=== PATIENT | female | born 1955 | race Caucasian/White ===

== ENCOUNTER 2017-09-13 18:52 | Inpatient (IN) | payer OTHER, MEDICARE ==
[~2017-09-13] VITALS: Ht 160 cm; Wt 86.0 kg
[~2017-09-13 18:52] MED LIST: ALBU8I INH; DOXY100T PO; LORT7.5T3; SOMA350T
[2017-09-13 19:04] VITALS: BP 121/77; PULSE 85; RESP 20; TEMP 98.5; O2SAT 99
[2017-09-13] MEDS ORDERED: ASPI1POW8 PO (19:11)
[2017-09-13] MEDS ORDERED: SODIUM CHLOR 0.9% 1000 ML INJ 1,000 ML IV SCH (20:43)
[2017-09-13] MEDS ORDERED: ONDANSETRON HCL 4 MG/2 ML VIAL IVP ONE (20:45)
[2017-09-13] MEDS ORDERED: FAMOTIDINE 20 MG/2 ML VIAL IV PUSH ONE (20:45)
[2017-09-13] MEDS ORDERED: MORPHINE SULFATE 4 MG/ML INJ IV PUSH ONE (20:45)
--- NOTE | 2017-09-13 21:09 | RADRPT ---
EXAM DATE/TIME: 09/13/2017 20:50 [facility] COMPARISON: No previous studies available for comparison. INDICATIONS : Lower chest pain and vomiting. MEDICAL HISTORY : None. SURGICAL HISTORY : None. ENCOUNTER: Initial ACUITY: 3 days PAIN SCORE: 10/10 LOCATION: Bilateral chest FINDINGS: A single view of the chest demonstrates the lungs to be symmetrically aerated without evidence of mas s, infiltrate or effusion. The cardiomediastinal contours are unremarkable. Osseous structures are intact. CONCLUSION: No evidence of acute cardiopulmonary disease. Davis Drummond MD on September 13, 2017 at 21:07 Board Certified Radiologist. This report was verified electronically.
[2017-09-13 21:24] VITALS: PULSE 81; RESP 18; O2SAT 99
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
[2017-09-13 21:29] LABS: BACTERIA, URINE OCC /hpf; BILIRUBIN, URINE NEG (NEG); BLOOD, URINE SMALL (NEG); GLUCOSE,URINE NEG (NEG); KETONE, URINE 10 mg/dL (NEG); MUCUS URINE FEW /lpf (OCC); NITRITE,URINE NEG (NEG); SQUAMOUS EPITHELIAL CELL URINE 1 /hpf (0-5); URINE COLOR YELLOW (YELLW/STRAW); URINE LEUKOCYTE ESTERASE NEG (NEG)
[2017-09-13 21:37] LABS: AUTOMATED NEUTROPHIL # 6.7 TH/MM3 (1.8-7.7); BASOPHIL # 0.1 TH/MM3 (0-0.2); BASOPHIL % 0.5 % (0.0-2.0); EOSINOPHIL # 0.5 TH/MM3 (0-0.4); EOSINOPHIL % 5.3 % (0.0-4.0); HEMATOCRIT 41.5 % (35.0-46.0); HEMOGLOBIN 14.3 GM/DL (11.6-15.3); LYMPH % 21.4 % (9.0-44.0); LYMPHOCYTE # 2.2 TH/MM3 (1.0-4.8); MEAN CELL VOLUME 88.5 FL (80.0-100.0); MEAN CORPUSCULAR HEMOGLOBIN 30.6 PG (27.0-34.0); MEAN CORPUSCULAR HGB CONC 34.6 % (32.0-36.0); MEAN PLATELET VOLUME 8.8 FL (7.0-11.0); MONO % 8.1 % (0.0-8.0); MONOCYTE # 0.8 TH/MM3 (0-0.9); NEUT % 64.7 % (16.0-70.0); PLATELET COUNT 282 TH/MM3 (150-450); RED BLOOD COUNT 4.69 MIL/MM3 (4.00-5.30); RED CELL DISTRIBUTION WIDTH 14.5 % (11.6-17.2); WHITE BLOOD COUNT 10.3 TH/MM3 (4.0-11.0)
[2017-09-13 21:51] LABS: ALT (GPT) 17 U/L (10-53)
[2017-09-13 21:53] LABS: ALKALINE PHOSPHATASE 81 U/L (45-117); TOTAL BILIRUBIN ADULT 0.4 MG/DL (0.2-1.0); TOTAL PROTEIN 7.7 GM/DL (6.4-8.2)
[2017-09-13 22:06] LABS: ALBUMIN 3.5 GM/DL (3.4-5.0); AST (GOT) 20 U/L (15-37); BICARBONATE 24.7 MEQ/L (21.0-32.0); BLOOD UREA NITROGEN 9 MG/DL (7-18); CALCIUM 9.6 MG/DL (8.5-10.1); CHLORIDE 106 MEQ/L (98-107); CREATININE 0.89 MG/DL (0.50-1.00); GLOMERULAR FILTRATION RATE 65 ML/MIN (>89); GLUCOSE,RANDOM 95 MG/DL (74-106); SODIUM (NA) 138 MEQ/L (136-145)
[2017-09-13 22:07] LABS: TROPONIN I LESS THAN 0.02 NG/ML (0.02-0.05)
[2017-09-13] MEDS ORDERED: METOCLOPRAMIDE HCL 10 MG/2 ML VIAL IV PUSH ONE (22:15)
[2017-09-13] MEDS ORDERED: HYDROmorphone HCL PF 2 MG/ML VIAL IV PUSH ONE (22:15)
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
[2017-09-13] MEDS ORDERED: IOHEXOL 350 MG/ML 10 ML VIAL (for RAD DIAG) IVCONTRAST ONE (23:54)
--- NOTE | 2017-09-14 00:33 | RADRPT ---
EXAM DATE/TIME: 09/13/2017 23:39 [facility] COMPARISON: No previous studies available for comparison. INDICATIONS : Abdominal pain; rule out aortic aneurysm. IV CONTRAST: 97 cc Omnipaque 350 (iohexol) IV RADIATION DOSE: 20.48 CTDIvol (mGy) MEDICAL HISTORY : None SURGICAL HISTORY : Hysterectomy. ENCOUNTER: Initial ACUITY: 1 day PAIN SCALE: 7/10 LOCATION: abdomen TECHNIQUE: Volumetric scanning was performed using a multi-row detector CT scanner. The data was post processed with a variety of visualization algorithms including full volume maximum intensity projection, multi -planar sliding thin slab reformation, curved planar reformation, and surface rendering techniques. Using automated exposure control and adjustment of the mA and/or kV according to patient size, radiat ion dose was kept as low as reasonably achievable to obtain optimal diagnostic quality images. DICOM format image data is available electronically for review and comparison. FINDINGS: The lungs are free of acute parenchymal opacity. No effusions are identified. Examination of the medi astinum demonstrates no abnormally enlarged lymph nodes by CT criteria. No axillary or hilar abnormal ities are identified. Coronary artery calcifications are present. There is decreased density of the liver with respect to the spleen compatible with fatty infiltration . The spleen is unremarkable. The spleen is normal in size and free of focal defects. There is gallbl adder wall thickening with stones present and trace amount of pericholecystic fluid. There abnormal l eft paratracheal lymph nodes in aggregate measuring 3 cm in diameter. Examination of the pelvis demon strates no evidence of free fluid or pelvic mass. No abnormally enlarged inguinal or retroperitoneal lymph nodes are present. The bladder is unremarkable. Examination of the aortic arch demonstrates no evidence of aneurysm or dissection. The descending th oracic aorta is unremarkable and the aortic root is normal in size. There is direct origin of the lef t vertebral artery from the arch which can be seen as a normal variation. The aorta is normal in [place]. There is no evidence of aneurysm or dissection. The renal artery origins are patent bilaterally. The celiac axis and superior mesenteric artery origins are also patent. CONCLUSION: 1. No evidence of aneurysm. 2. Cholelithiasis with gallbladder wall thickening suspicious for acute cholecystitis. 3. [place] mesenteric adenopathy of uncertain etiology. Malignancy is not excluded. PET/CT scan is recommended to further evaluation if clinically indicated. 4. Hypodense liver compatible with fatty infiltration or hepatocellular disease. Alton Medina MD on September 14, 2017 at 0:22 Board Certified Radiologist. This report was verified electronically.
[2017-09-14] MEDS ORDERED: SODIUM CHLOR 0.9% 1000 ML INJ 1,000 ML IV SCH (01:27)
[2017-09-14] MEDS ORDERED: MORPHINE SULFATE 2 MG/ML SYRINGE IV PUSH PRN (01:30)
[2017-09-14] MEDS ORDERED: SENNOSIDES 8.6 MG TAB PO PRN (01:30)
[2017-09-14] MEDS ORDERED: ACETAMINOPHEN 325 MG TAB PO PRN (01:30)
[2017-09-14] MEDS ORDERED: SODIUM CHLORIDE 0.9% FLUSH 10 ML FLUSH IV FLUSH PRN (01:30)
[2017-09-14] MEDS ORDERED: LACTULOSE SYRUP 20 GM/30 ML CUP PO PRN (01:30)
[2017-09-14] MEDS ORDERED: MAGNESIUM HYDROXIDE SUSP 30 ML CUP PO PRN (01:30)
[2017-09-14] MEDS ORDERED: BISACODYL 10 MG SUPP RECTAL PRN (01:30)
--- NOTE | 2017-09-14 01:37 | PD ---
Physical Exam Date Seen by Provider: Sep 14, 2017 Narrative This is a patient who was initially seen by Simone Matthew PA-C for severe upper abdominal pain. Please see his note for full details of the H&P. This patient's pain has been difficult to control. However, she is now comfortable. Data Data Last Documented VS Vital Signs Date Time Temp Pulse Resp B/P (MAP) Pulse Ox O2 Delivery O2 Flow Rate FiO2 09/13/17 21:24 81 18 99 Room Air 09/13/17 19:04 98.5 121/77 (92) Orders Orders Complete Blood Count With Diff (09/13/17 19:12) Comprehensive Metabolic Panel (09/13/17 19:12) Urinalysis - C+S If Indicated (09/13/17 19:12) Iv Access Insert/Monitor (09/13/17 19:12) Oxygen Administration (09/13/17 19:12) Oximetry (09/13/17 19:12) Lipase (09/13/17 19:12) Electrocardiogram (09/13/17 ) Lactic Acid Sepsis Protocol (09/13/17 20:43) Ecg Monitoring (09/13/17 20:43) Morphine Inj (Morphine Inj) (09/13/17 20:45) Ondansetron Inj (Zofran Inj) (09/13/17 20:45) Sodium Chlor 0.9% 1000 Ml Inj (Ns 1000 M (09/13/17 20:43) Electrocardiogram (09/13/17 20:43) Famotidine Inj (Pepcid Inj) (09/13/17 20:45) Troponin I (09/13/17 20:43) Ckmb (Isoenzyme) Profile (09/13/17 20:43) Chest, Single Ap (09/13/17 ) Us Abdomen Gallbladder (09/13/17 ) Hydromorphone Pf Inj (Dilaudid Pf Inj) (09/13/17 22:15) Metoclopramide Inj (Reglan Inj) (09/13/17 22:15) Cta Thor Abd Aorta W Iv C W3d (09/13/17 ) Iohexol 350 Inj (Omnipaque 350 Inj) (09/13/17 23:54) Admit Order (Ed Use Only) (09/14/17 ) Vital Signs (Adult) Q4H (09/14/17 01:27) Activity Oob With Assistance (09/14/17:27) Notify Dr: Other (09/14/17:) Piperacil-Tazo 4.5 Gm Premix (Zosyn 4.5 (09/14/17 01:30) Consult General Surgery (09/14/17 ) Admit To Inpatient (09/14/17 ) Vital Signs (Adult) Q4H (09/14/17:27) Activity Oob Ad Michelle (09/14/17:27) Intake + Output ALEN.QSHIFT (09/14/17:27) Diet Clear Liquid (09/14/17 Breakfast) Sodium Chlor 0.9% 1000 Ml Inj (Ns 1000 M (09/14/17:27) Sodium Chloride 0.9% Flush (Ns Flush) (09/14/17 01:30) Sodium Chloride 0.9% Flush (Ns Flush) (09/14/17 09:00) Ondansetron Inj (Zofran Inj) (09/14/17 01:30) Comprehensive Metabolic Panel (09/15/17 06:00) Complete Blood Count With Diff (09/15/17 06:00) Scd Bilateral/Knee High ALEN.BID (09/14/17 01:27) Cliff Bilateral/Knee High ALEN.QSHIFT (09/14/17 01:29) Acetaminophen (Tylenol) (09/14/17 01:30) Morphine Inj (Morphine Inj) (09/14/17 01:30) Docusate Sodium-Senna (Sakina-Colace) (09/14/17 09:00) Magnesium Hydroxide Liq (Milk Of Magnesi (09/14/17 01:30) Sennosides (Senokot) (09/14/17 01:30) Bisacodyl Supp (Dulcolax Supp) (09/14/17 01:30) Lactulose Liq (Lactulose Liq) (09/14/17 01:30) Inpatient Certification (09/14/17 ) Labs Laboratory Tests Test 09/13/17 20:12 09/13/17 21:15 Urine Color YELLOW Urine Turbidity CLEAR Urine pH 6.0 Urine Specific [place] 1.009 Urine Protein NEG mg/dL Urine Glucose (UA) NEG mg/dL Urine Ketones 10 mg/dL Urine Occult Blood SMALL Urine Nitrite NEG Urine Bilirubin NEG Urine Urobilinogen LESS THAN 2.0 MG/DL Urine Leukocyte Esterase NEG Urine RBC 4 /hpf Urine WBC LESS THAN 1 /hpf Urine Squamous Epithelial Cells 1 /hpf Urine Bacteria OCC /hpf Urine Mucus FEW /lpf Microscopic Urinalysis Comment CULT NOT INDICATED White Blood Count 10.3 TH/MM3 Red Blood Count 4.69 MIL/MM3 Hemoglobin 14.3 GM/DL Hematocrit 41.5 % Mean Corpuscular Volume 88.5 FL Mean Corpuscular Hemoglobin 30.6 PG Mean Corpuscular Hemoglobin Concent 34.6 % Red Cell Distribution Width 14.5 % Platelet Count 282 TH/MM3 Mean Platelet Volume 8.8 FL Neutrophils (%) (Auto) 64.7 % Lymphocytes (%) (Auto) 21.4 % Monocytes (%) (Auto) 8.1 % Eosinophils (%) (Auto) 5.3 % Basophils (%) (Auto) 0.5 % Neutrophils # (Auto) 6.7 TH/MM3 Lymphocytes # (Auto) 2.2 TH/MM3 Monocytes # (Auto) 0.8 TH/MM3 Eosinophils # (Auto) 0.5 TH/MM3 Basophils # (Auto) 0.1 TH/MM3 CBC Comment DIFF FINAL Differential Comment Blood Urea Nitrogen 9 MG/DL Creatinine 0.89 MG/DL Random Glucose 95 MG/DL Total Protein 7.7 GM/DL Albumin 3.5 GM/DL Calcium Level 9.6 MG/DL Alkaline Phosphatase 81 U/L Aspartate Amino Transf (AST/SGOT) 20 U/L Alanine Aminotransferase (ALT/SGPT) 17 U/L Total Bilirubin 0.4 MG/DL Sodium Level 138 MEQ/L Potassium Level 4.0 MEQ/L Chloride Level 106 MEQ/L Carbon Dioxide Level 24.7 MEQ/L Anion Gap 7 MEQ/L Estimat Glomerular Filtration Rate 65 ML/MIN Lactic Acid Level 1.2 mmol/L Total Creatine Kinase 67 U/L Troponin I LESS THAN 0.02 NG/ML Lipase 178 U/L MDM Supervised Visit with [facility]: Yes Narrative Course I, Dr. Kamara, have reviewed the advance practice practitioner's documentation and am in agreement, met with the patient face to face, made the diagnosis, and the medical decision making was done by me. *My assessment and Findings: Patient was initially in significant pain. She is now comfortable. CBC & BMP Diagram 09/13/17 21:15 Total Protein 7.7, Albumin 3.5, Calcium Level 9.6, Alkaline Phosphatase 81, Aspartate Amino Transf (AST/SGOT) 20, Alanine Aminotransferase (ALT/SGPT) 17, Total Bilirubin 0.4, Lipase 178 trop < 0.02 Last Impressions Gall Bladder Ultrasound 09/13/17 0000 Signed Impressions: Service Date/Time: Wednesday, September 13, 2017 21:26 - CONCLUSION: 1. Cholelithiasis without evidence of cholecystitis or biliary obstruction. 2. Suspected small right pleural effusion. Davis Drummond MD Chest X-Ray 09/13/17 0000 Signed Impressions: Service Date/Time: Wednesday, September 13, 2017 20:50 - CONCLUSION: No evidence of acute cardiopulmonary disease. Davis Drummond MD CTA: 1. No evidence of aneurysm. 2. Cholelithiasis with gallbladder wall thickening suspicious for acute cholecystitis. 3. [place] mesenteric adenopathy of uncertain etiology. Malignancy is not excluded. PET/CT scan is recommended to further evaluation if clinically indicated. 4. Hypodense liver compatible with fatty infiltration or hepatocellular disease. Disposition has been discussed with the patient and her daughter. She is amenable to admission to the hospital for pain control and probable definitive treatment of her cholelithiasis/? cholecystitis Diagnosis Primary Impression: Abdominal pain Qualified Codes: R10.13 - Epigastric pain Additional Impression: Cholelithiasis Qualified Codes: K80.00 - Calculus of gallbladder with acute cholecystitis without obstruction Admitting Information Admitting Physician Requests: Admit Condition: Stable Kalie Kamara MD Sep 14, 2017 01:37
[2017-09-14] MEDS: PIPERACIL-TAZO 4.5 GM PREMIX 100 ML IV SCH ×4 (02:12→19:16)
[2017-09-14 02:37] VITALS: BP 108/68; PULSE 76; RESP 20; TEMP 97.6; O2SAT 98
[2017-09-14] MEDS: ONDANSETRON HCL 4 MG/2 ML VIAL IVP PRN ×3 (02:47→16:19)
[2017-09-14] MEDS: HYDROmorphone HCL PF 2 MG/ML VIAL IV PUSH PRN ×3 (02:48→16:19)
--- NOTE | 2017-09-14 03:12 | HHI.HP ---
[facility] Kyle Armstrong D.O. Admission Diagnosis abd pain, cholecystitis Diagnoses: (1) Cholecystitis Diagnosis: Principal (2) Intractable pain Diagnosis: Principal (3) Tobacco abuse Diagnosis: Principal Travel History International Travel<30 Days: No Contact w/Intl Traveler <30 Da: No Traveled to Known Affected Are: No History of Present Illness This is a 62-year-old female with no significant PMH who presented to the ER with complaints of abdominal pain in addition to nausea and vomiting x4 days. States symptoms have gotten progressively worse, now w/ few episodes of diarrhea. Reports pain initially intermittent, now constant, severe, 9/10, epigastric/RUQ, non-radiating. No h/o similar symptoms. Denies fever or chills. On arrival, BP 121/77, HR 85, O2 sat 99% RA, Afebrile. CBC unremarkable. Chemistry essentially unremarkable except for GFR 65. LFTs normal. Troponin negative. Lipase normal per UA negative. CXR with no acute findings. Gallbladder US with cholelithiasis, no evidence of cholecystitis or biliary obstruction. CTA Aorta with no aneurysm, cholelithiasis with gallbladder wall thickening suspicious for acute cholecystitis, confluent mesenteric adenopathy of uncertain etiology, malignancy not excluded, hypodense liver compatible with fatty infiltration or hepatocellular disease. S/p Morphine, Zofran and Dilaudid in ER w/ some improvement. Review of Systems Except as stated in HPI: all other systems reviewed are Neg ROS: 14 point review of systems otherwise negative. Past Family Social History Past Medical History PMH: None Past Surgical History PAST SURGICAL HISTORY: Partial Hysterectomy, Left Femur Allergies: Coded Allergies: codeine (Unverified Allergy, Intermediate, Itching, 09/13/17) N/V Family History PAST FAMILY HISTORY: Reviewed. No h/o DM or CAD Social History PAST SOCIAL HISTORY: Occasional alcohol. Smokes 1ppd. Negative for drugs. Physical Exam Vital Signs Vital Signs Date Time Temp Pulse Resp B/P (MAP) Pulse Ox O2 Delivery O2 Flow Rate FiO2 09/14/17 02:37 97.6 76 20 108/68 (81) 98 09/13/17 21:24 81 18 99 Room Air 09/13/17 19:04 98.5 85 20 121/77 (92) 99 Physical Exam PE: GENERAL: Very pleasant middle-aged white female in no acute distress. HEENT: PERRLA, EOMI. No scleral icterus or conjunctival pallor. No lid lag or facial droop. CARDIOVASCULAR: Regular rate and rhythm. No obvious murmurs to auscultation. No chest tenderness to palpation. RESPIRATORY: No obvious rhonchi or wheezing. Clear to auscultation. Breath sounds equal bilaterally. GASTROINTESTINAL: Abdomen soft, tenderness to palpation RUQ/epigastric region, nondistended. BS normal. MUSCULOSKELETAL: Extremities without clubbing, cyanosis, or edema. No obvious deformities. NEUROLOGICAL: Awake, alert and oriented x4. No focal neurologic deficits. Moving both upper and lower extremities spontaneously. Laboratory Laboratory Tests Test 09/13/17 20:12 09/13/17 21:15 Urine Color YELLOW Urine Turbidity CLEAR Urine pH 6.0 Urine Specific Maxie 1.009 Urine Protein NEG Urine Glucose (UA) NEG Urine Ketones 10 Urine Occult Blood SMALL Urine Nitrite NEG Urine Bilirubin NEG Urine Urobilinogen LESS THAN 2.0 Urine Leukocyte Esterase NEG Urine RBC 4 Urine WBC LESS THAN 1 Urine Squamous Epithelial Cells 1 Urine Bacteria OCC Urine Mucus FEW Microscopic Urinalysis Comment CULT NOT INDICATED White Blood Count 10.3 Red Blood Count 4.69 Hemoglobin 14.3 Hematocrit 41.5 Mean Corpuscular Volume 88.5 Mean Corpuscular Hemoglobin 30.6 Mean Corpuscular Hemoglobin Concent 34.6 Red Cell Distribution Width 14.5 Platelet Count 282 Mean Platelet Volume 8.8 Neutrophils (%) (Auto) 64.7 Lymphocytes (%) (Auto) 21.4 Monocytes (%) (Auto) 8.1 Eosinophils (%) (Auto) 5.3 Basophils (%) (Auto) 0.5 Neutrophils # (Auto) 6.7 Lymphocytes # (Auto) 2.2 Monocytes # (Auto) 0.8 Eosinophils # (Auto) 0.5 Basophils # (Auto) 0.1 CBC Comment DIFF FINAL Differential Comment Blood Urea Nitrogen 9 Creatinine 0.89 Random Glucose 95 Total Protein 7.7 Albumin 3.5 Calcium Level 9.6 Alkaline Phosphatase 81 Aspartate Amino Transf (AST/SGOT) 20 Alanine Aminotransferase (ALT/SGPT) 17 Total Bilirubin 0.4 Sodium Level 138 Potassium Level 4.0 Chloride Level 106 Carbon Dioxide Level 24.7 Anion Gap 7 Estimat Glomerular Filtration Rate 65 Lactic Acid Level 1.2 Total Creatine Kinase 67 Troponin I LESS THAN 0.02 Lipase 178 Result Diagram: 09/13/17211409/13/172114 Chasrini VTE Risk Assessment Caprini VTE Risk Assessment: No/Low Risk (score <= 1) Caprini Risk Assessment Model Point Value = 1 Point Value = 2 Point Value = 3 Point Value = 5 Age 41-60 Minor surgery BMI > 25 kg/m2 Swollen legs Varicose veins or History of unexplained or recurrent spontaneous Oral contraceptives or hormone replacement Sepsis (< 1 month) Serious lung disease, including pneumonia (< 1 month) Abnormal pulmonary function Acute myocardial infarction Congestive heart failure (< 1 month) History of inflammatory bowel disease Medical patient at bed rest Age 61-74 Arthroscopic surgery Major open surgery (> 45 min) Laparoscopic surgery (> 45 min) Malignancy Confined to bed (> 72 hours) Immobilizing plaster cast Central venous access Age >= 75 History of VTE Family history of VTE Factor V Leiden Prothrombin [id number] Lupus anticoagulant Anticardiolipin antibodies Elevated serum homocysteine Heparin-induced thrombocytopenia Other congenital or acquired thrombophilia Stroke (< 1 month) Elective arthroplasty Hip, pelvis, or leg fracture Acute spinal cord injury (< 1 month) Prophylaxis Regimen Total Risk Factor Score Risk Level Prophylaxis Regimen 0-1 Low Early ambulation 2 Moderate Order ONE of the following: *Sequential Compression Device (SCD) *Heparin 5000 units SQ BID 3-4 Higher Order ONE of the following medications: *Heparin 5000 units SQ TID *Enoxaparin/Lovenox 40 mg SQ daily (WT < 150 kg, CrCl > 30 mL/min) *Enoxaparin/Lovenox 30 mg SQ daily (WT < 150 kg, CrCl > 10-29 mL/min) *Enoxaparin/Lovenox 30 mg SQ BID (WT < 150 kg, CrCl > 30 mL/min) AND/OR *Sequential Compression Device (SCD) 5 or more Highest Order ONE of the following medications: *Heparin 5000 units SQ TID (Preferred with Epidurals) *Enoxaparin/Lovenox 40 mg SQ daily (WT < 150 kg, CrCl > 30 mL/min) *Enoxaparin/Lovenox 30 mg SQ daily (WT < 150 kg, CrCl > 10-29 mL/min) *Enoxaparin/Lovenox 30 mg SQ BID (WT < 150 kg, CrCl > 30 mL/min) AND *Sequential Compression Device (SCD) Assessment and Plan Problem List: (1) Cholecystitis ICD Code: K81.9 - Cholecystitis, unspecified (2) Intractable pain ICD Code: R52 - Pain, unspecified (3) Tobacco abuse ICD Code: Z72.0 - Tobacco use Assessment and Plan A/P: 1. Cholecystitis: acute onset of abdominal pain, nausea/vomiting w/ progression, Gallbladder US w/ cholelithiasis, CTA Aorta w/ cholelithiasis and gallbladder wall thickening consistent w/ acute cholecystitis and mesenteric adenopathy. Will Consult Gen Sx for further evaluation, clear liquids, IVF, analgesics/antiemetics. 2. Intractable Pain: secondary to above, s/p Morphin in ER w/ minimal improvement, will switch to Dilaudid IV, antiemetics as needed, more comfortable now, not requesting additional medication. 3. Tobacco Abuse: Pt counselled, NicoDerm prn if needed 4. DVT Prophylaxis: SCD/Teds 5. Social work for d/c planning as needed. 6. Case discussed w/ ER physician at length, labs/records/imaging reviewed by me. Physician Certification 2 Midnight Certification Type: Admission for Inpatient Services Order for Inpatient Services The services are ordered in accordance with Medicare regulations or non- Medicare payer requirements, as applicable. In the case of services not specified as inpatient-only, they are appropriately provided as inpatient services in accordance with the 2-midnight benchmark. Estimated LOS (days): 2 days is the estimated time the patient will need to remain in the hospital, assuming treatment plan goals are met and no additional complications. Post-Hospital Plan: Not yet determined Geno Millan MD Sep 14, 2017 03:12
[2017-09-14 08:00] VITALS: BP 124/64; PULSE 83; RESP 17; TEMP 97.4; O2SAT 96
[2017-09-14] MEDS: SODIUM CHLORIDE 0.9% FLUSH 10 ML FLUSH IV FLUSH SCH ×2 (08:30→19:17)
[2017-09-14] MEDS: DOCUSATE SODIUM 50 MG/SENNA 8.6 MG TAB PO SCH ×2 (08:31→19:17)
[2017-09-14] MEDS: LACTATED RINGER'S 1000 ML INJ 1,000 ML IV SCH ×2 (08:33→12:15)
[2017-09-14] MEDS ORDERED: INSULIN HUMAN REGULAR 1,000 UNITS/10 ML VIAL SQ PRN (09:30)
[2017-09-14] MEDS ORDERED: LACTATED RINGER'S 1000 ML IV PRN (09:30)
[2017-09-14] MEDS ORDERED: POVIDONE IODINE 5% (ANTISEPSIS KIT) 4 APPLICATIONS EACH NARE PRN (09:30)
[2017-09-14] MEDS ORDERED: METOPROLOL TARTRATE 25 MG TAB PO PRN (09:30)
[2017-09-14] MEDS ORDERED: SODIUM CHLORID 0.9% 500 ML IV PRN (09:30)
[2017-09-14] MEDS ORDERED: CHLORHEXIDINE GLUCONATE 2 % 1 PACK (2 CLOTHS) TOPICAL PRN (09:30)
[2017-09-14] MEDS ORDERED: ACETAMINOPHEN 1000 MG/100 ML 0 ML IV ONE (09:57)
[2017-09-14] MEDS ORDERED: BUPIVACAINE/EPINEPHRINE 0.25% 50 ML VIAL ONE (09:57)
--- NOTE | 2017-09-14 10:32 | HHI.PR ---
Immediate Post Op Note Procedure Date: Sep 14, 2017 Pre Op Diagnosis: acute cholecystitis, symptomatic cholelithiasis Post Op Diagnosis: same Surgeon: Justin Walter MD Wire Saw Operator(s): see or sheet Procedure: lap rolan Findings: inflamed distended gallbladder with stones Complications: none Specimen(s) removed: gallbladder Estimated blood loss: 5cc Anesthesia: General Drains: None Patient to: PACU Patient Condition: Good Justin Walter MD Sep 14, 2017 10:32
[2017-09-14] MEDS ORDERED: DO NOT ADM ANY ANTICOAGULANT DRUGS PRN (11:42)
[2017-09-14] MEDS ORDERED: MIDAZOLAM HCL 2 MG/2 ML VIAL ONE (11:52)
[2017-09-14] MEDS ORDERED: ONDANSETRON HCL 4 MG/2 ML VIAL IV ONE (12:00)
[2017-09-14] MEDS ORDERED: DEXAMETHASONE SOD PHOS 4 MG/ML VIAL IV ONE (12:00)
[2017-09-14] MEDS ORDERED: ROCURONIUM INJ 50 MG/5 ML SYRINGE IV PUSH ONE (12:00)
[2017-09-14] MEDS ORDERED: PROPOFOL 200 MG/20 ML AMP IV ONE (12:00)
[2017-09-14] MEDS ORDERED: GLYCOPYRROLATE 1 MG/5 ML SYRINGE IV PUSH ONE (12:00)
[2017-09-14] MEDS ORDERED: NEOSTIGMINE 5 MG/5 ML SYRINGE IV PUSH ONE (12:00)
[2017-09-14] MEDS ORDERED: LIDOCAINE HCL 1% PF 5 ML SYRINGE OTHER ONE (12:00)
[2017-09-14] MEDS ORDERED: ESMOLOL HCL 100 MG/10 ML VIAL IV ONE (12:00)
[2017-09-14] MEDS ORDERED: *morphine SULFATE 8 MG/ML PERIprocedure ONLY ONE ×2 (12:17→12:25)
[2017-09-14] MEDS ORDERED: HYDROmorphone HCL PF 0.5 MG/0.5 ML SYRINGE ONE (12:33)
--- NOTE | 2017-09-14 12:37 | MP ---
cc: Justin Walter MD DATE OF OPERATION: 09/14/2017 PREOPERATIVE DIAGNOSIS: Acute cholecystitis with cholelithiasis. POSTOPERATIVE DIAGNOSIS: Acute cholecystitis with cholelithiasis. PROCEDURE PERFORMED: Laparoscopic cholecystectomy. SURGEON: Justin Walter MD MERCHANDISE COLLECTOR: ARTURO ANESTHESIA: GETA. INTRAVENOUS FLUIDS: See anesthesia sheet. ESTIMATED BLOOD LOSS: 15 mL DRAINS: None. COMPLICATIONS: None. WOUND CLASSIFICATION: Clean/contaminated. SPECIMENS: Gallbladder. FINDINGS: Inflamed, distended gallbladder with multiple gallstones. INDICATION: The patient a 62-year-old female who presented with acute onset of right upper quadrant epigastric abdominal pain. She had further workup including ultrasound showing multiple gallstones. Decision was made for laparoscopic cholecystectomy. DESCRIPTION OF PROCEDURE: The patient was taken to the operating suite, placed in supine position. She was prepped and draped in usual sterile fashion after induction of general endotracheal anesthesia. Brief timeout done stating correct patient, procedure, surgical site. We were all in agreement with this. Attention first directed to the umbilicus where local anesthetic injected. Small stab kalyn incision was made. A 5 mm port was done with Visiport and entered into the abdomen safely. On cursory inspection, no evidence of injury. Three other ports placed, including a 12 mm epigastric port, followed by two 5 mm right subcostal ports. The patient placed in reverse Trendelenburg, airplaned left. On observation, there was noted to be some adhesions around the gallbladder and gallbladder noted to be acutely inflamed and thickened wall. The adhesions were taken down. The gallbladder fundus was grasped and retracted cephalad. The hook Bovie electrocautery was used to dissect out the gallbladder along with a [place] grasper. The gallbladder, cystic duct and cystic artery were dissected out in the usual manner, 2 clips placed proximal on the cystic artery and 1 distal. Small side branch, single clip placed. EndoShears used to transect this. Cystic duct, 3 clips were placed proximal and 1 clip was placed distal. The EndoShears used to transect the cystic duct. Gallbladder was removed from the gallbladder fossa with hook Bovie electrocautery and placed in the EndoCatch bag. Prior to removal, actually, the gallbladder was decompressed with an EndoNeedle due to the thickened induration and difficulty in grasping the gallbladder. Suction irrigation done until effluent was clear. Hook Bovie electrocautery used in the gallbladder fossa. Small little bleeding controlled with hook Bovie electrocautery and small piece of Surgicel was placed in the gallbladder fossa bed. Following this, hemostasis was noted and no biliary leakage. The patient flattened out, pneumoperitoneum removed, the ports were removed. The epigastric port was closed with 0 Vicryl, 4-0 Monocryl use all port sites. Local anesthetic injected. Sterile dressings including Steri-Strips and Mastisol placed. The patient tolerated procedure well. No intraoperative complications. All lap and instrument counts were correct at the end of the procedure. MD SHARYN Menchaca/MARY , 12:15 PM , 12:36 PM
--- NOTE | 2017-09-14 13:48 | HHI.PR ---
Addendum To [facility] Progress Not Reason for addendum: Additonal documentation (Discussed with surgery, status post laparoscopic cholecystectomy secondary to cholecystitis and gallstones. Recommending continue IV Zosyn.Abnormal imaging regarding liver outpatient follow-up) Mich Moffett MD Sep 14, 2017 13:48
--- NOTE | 2017-09-14 14:25 | EKG ---
Date Performed: 09/13/2017 Time Performed: 19:30:58 PTAGE: 62 years EKG: Sinus rhythm NORMAL ECG Since PREVIOUS TRACING , no significant change noted PREVIOUS TRACIN09/11/2013 06.42.04 DOCTOR: Azul Riggins Interpretating Date/Time 09/16/2017 12:59:15
[2017-09-14 16:00] VITALS: BP 115/59; PULSE 62; RESP 17; TEMP 97.6; O2SAT 95
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
[2017-09-14] MEDS ORDERED: diphenhydrAMINE HCL 25 MG CAP PO SCH (18:45)
[2017-09-14] MEDS ORDERED: diphenhydrAMINE HCL 25 MG CAP PO PRN (19:00)
[2017-09-14] MEDS ORDERED: MORPHINE SULFATE 4 MG/ML INJ IV PRN (19:00)
[2017-09-14] MEDS: ACETAMINOPHEN/HYDROcodone 325 MG/5 MG TAB PO PRN ×2 (19:17→23:09)
[2017-09-14 20:00] VITALS: BP 102/63; PULSE 64; RESP 18; TEMP 98; O2SAT 98
[2017-09-15] VITALS: BP 135/69; PULSE 59; RESP 17; TEMP 98.4; O2SAT 96
[2017-09-15] MEDS: PIPERACIL-TAZO 4.5 GM PREMIX 100 ML IV SCH ×2 (01:52→09:04)
[2017-09-15 06:11] LABS: BASOPHIL % 0.1 % (0.0-2.0); HEMOGLOBIN 10.9 GM/DL (11.6-15.3); LYMPH % 8.9 % (9.0-44.0); LYMPHOCYTE # 0.8 TH/MM3 (1.0-4.8); MEAN CELL VOLUME 90.5 FL (80.0-100.0); MEAN CORPUSCULAR HEMOGLOBIN 30.9 PG (27.0-34.0); MEAN CORPUSCULAR HGB CONC 34.1 % (32.0-36.0); MEAN PLATELET VOLUME 9.2 FL (7.0-11.0); MONO % 5.9 % (0.0-8.0); MONOCYTE # 0.6 TH/MM3 (0-0.9); NEUT % 85.1 % (16.0-70.0); PLATELET COUNT 205 TH/MM3 (150-450); RED BLOOD COUNT 3.54 MIL/MM3 (4.00-5.30); RED CELL DISTRIBUTION WIDTH 14.9 % (11.6-17.2); WHITE BLOOD COUNT 9.4 TH/MM3 (4.0-11.0)
[2017-09-15 06:54] LABS: ALBUMIN 2.6 GM/DL (3.4-5.0); ALKALINE PHOSPHATASE 121 U/L (45-117); ALT (GPT) 321 U/L (10-53); AST (GOT) 252 U/L (15-37); BICARBONATE 23.8 MEQ/L (21.0-32.0); BLOOD UREA NITROGEN 7 MG/DL (7-18); CALCIUM 8.7 MG/DL (8.5-10.1); CHLORIDE 106 MEQ/L (98-107); CREATININE 0.92 MG/DL (0.50-1.00); GLOMERULAR FILTRATION RATE 62 ML/MIN (>89); GLUCOSE,RANDOM 116 MG/DL (74-106); SODIUM (NA) 140 MEQ/L (136-145); TOTAL BILIRUBIN ADULT 0.6 MG/DL (0.2-1.0)
[2017-09-15] MEDS ORDERED: OXYC-392 PO (07:38)
--- NOTE | 2017-09-15 07:38 | HHI.DCPOC ---
Discharge Care Plan Diagnosis: (1) Cholelithiasis (2) Cholecystitis Your Health Problems Are: Difficulty with ADL Exercise Tolerance Goals to Promote Your Health * To prevent worsening of your condition and complications * To maintain your health at the optimal level Directions to Meet Your Goals Take your medications as prescribed Follow your dietary instruction Follow activity as directed Keep your appointments as scheduled Take your immunizations and boosters as scheduled If your symptoms worsen call your PCP, if no PCP go to Urgent Care Center or Emergency Room Smoking is Dangerous to Your Health. Avoid second hand smoke Call the 24-hour hour crisis hotline for domestic abuse at Mich Moffett MD Sep 15, 2017 07:38
[2017-09-15] MEDS: SODIUM CHLORIDE 0.9% FLUSH 10 ML FLUSH IV FLUSH SCH (07:44)
[2017-09-15] MEDS: LACTATED RINGER'S 1000 ML INJ 1,000 ML IV SCH (07:50)
[2017-09-15] MEDS: DOCUSATE SODIUM 50 MG/SENNA 8.6 MG TAB PO SCH (09:04)
--- NOTE | 2017-09-15 10:31 | HHI.PR ---
Subjective Subjective Notes Resting in bed No issues Pain controlled Objective Vitals/I&O Vital Signs Date Time Temp Pulse Resp B/P (MAP) Pulse Ox O2 Delivery O2 Flow Rate FiO2 09/15/17 00:00 98.4 59 17 135/69 (91) 96 09/14/17 12:45 Nasal Cannula 3 Labs Laboratory Tests Test 09/15/17 05:25 White Blood Count 9.4 Red Blood Count 3.54 Hemoglobin 10.9 Hematocrit 32.0 Mean Corpuscular Volume 90.5 Mean Corpuscular Hemoglobin 30.9 Mean Corpuscular Hemoglobin Concent 34.1 Red Cell Distribution Width 14.9 Platelet Count 205 Mean Platelet Volume 9.2 Neutrophils (%) (Auto) 85.1 Lymphocytes (%) (Auto) 8.9 Monocytes (%) (Auto) 5.9 Eosinophils (%) (Auto) 0.0 Basophils (%) (Auto) 0.1 Neutrophils # (Auto) 8.0 Lymphocytes # (Auto) 0.8 Monocytes # (Auto) 0.6 Eosinophils # (Auto) 0.0 Basophils # (Auto) 0.0 CBC Comment DIFF FINAL Differential Comment Blood Urea Nitrogen 7 Creatinine 0.92 Random Glucose 116 Total Protein 6.0 Albumin 2.6 Calcium Level 8.7 Alkaline Phosphatase 121 Aspartate Amino Transf (AST/SGOT) 252 Alanine Aminotransferase (ALT/SGPT) 321 Total Bilirubin 0.6 Sodium Level 140 Potassium Level 4.3 Chloride Level 106 Carbon Dioxide Level 23.8 Anion Gap 10 Estimat Glomerular Filtration Rate 62 Cardiovascular: Regular Lungs: Clear Abdomen: Other (lap sites c/d/i ), Post-op tenderness Extremities: No edema A/P Assessment and Plan 62 year old female POD1 lap rolan -Tolerated regular diet -Pain controlled -Okay to shower tomorrow; pat incisions dry -No bathtubs, swimming pools or beach -Follow up next Friday; daughter will call office to make appointment -GS clear for Florence CarterP/Piped Buttonhole Machine Operator TRANSCRIPTION Sep 15, 2017 10:31
--- NOTE | 2017-09-15 10:53 | HHI.PR ---
Subjective Remarks Follow-up laparoscopic cholecystectomy. She is doing okay discussed with general surgery patient can be discharged home. Seen with daughter discussed with nursing Objective Vitals Vital Signs Date Time Temp Pulse Resp B/P (MAP) Pulse Ox O2 Delivery O2 Flow Rate FiO2 09/15/17 00:00 98.4 59 17 135/69 (91) 96 09/14/17 20:00 98.0 64 18 102/63 (76) 98 09/14/17 16:00 97.6 62 17 115/59 (77) 95 09/14/17 12:45 98.8 74 18 120/58 (78) 95 Nasal Cannula 3 09/14/17 12:30 62 16 122/55 (77) 97 09/14/17 12:15 65 16 123/58 (79) 98 09/14/17 12:00 79 11 131/63 (85) 97 09/14/17 11:45 99 20 137/68 (91) 97 Nasal Cannula 2 09/14/17 11:44 98.8 98 13 132/60 (84) 99 Nasal Cannula 2 I/O 09/14/17 09/14/17 09/14/17 09/15/17 09/15/17 09/15/17 07:00 15:00 23:00 07:00 15:00 23:00 Intake Total 1480 ml 1800 ml 560 ml 500 ml Output Total 15 ml Balance 1480 ml 1785 ml 560 ml 500 ml Intake Oral 380 ml 360 ml 400 ml IV Total 1100 ml 1000 ml 200 ml 100 ml Other 800 ml Output Estimated Blood Loss 15 ml # Voids 2 3 3 # Bowel Movements 0 Result Diagram: 09/15/17 0525 09/15/17 0525 Imaging Last Impressions Gall Bladder Ultrasound 09/13/17 0000 Signed Impressions: Service Date/Time: Wednesday, September 13, 2017 21:26 - CONCLUSION: 1. Cholelithiasis without evidence of cholecystitis or biliary obstruction. 2. Suspected small right pleural effusion. Davis Drummond MD Chest X-Ray 09/13/17 0000 Signed Impressions: Service Date/Time: Wednesday, September 13, 2017 20:50 - CONCLUSION: No evidence of acute cardiopulmonary disease. Davis Drummond MD Aorta CTA 09/13/17 0000 Signed Impressions: Service Date/Time: Wednesday, September 13, 2017 23:39 - CONCLUSION: 1. No evidence of aneurysm. 2. Cholelithiasis with gallbladder wall thickening suspicious for acute cholecystitis. 3. Francisco mesenteric adenopathy of uncertain etiology. Malignancy is not excluded. PET/CT scan is recommended to further evaluation if clinically indicated. 4. Hypodense liver compatible with fatty infiltration or hepatocellular disease. Alton Medina MD Objective Remarks GENERAL: Very pleasant middle-aged white female in no acute distress. HEENT: PERRLA, EOMI. No scleral icterus or conjunctival pallor. No lid lag or facial droop. CARDIOVASCULAR: Regular rate and rhythm. No obvious murmurs to auscultation. No chest tenderness to palpation. RESPIRATORY: No obvious rhonchi or wheezing. Clear to auscultation. Breath sounds equal bilaterally. GASTROINTESTINAL: Abdomen soft, tenderness to palpation RUQ/epigastric region over the operative site, nondistended. BS normal. MUSCULOSKELETAL: Extremities without clubbing, cyanosis, or edema. No obvious deformities. NEUROLOGICAL: Awake, alert and oriented x4. No focal neurologic deficits. Moving both upper and lower extremities spontaneously. Procedures Laparoscopic cholecystectomy A/P Problem List: (1) Cholecystitis ICD Code: K81.9 - Cholecystitis, unspecified (2) Intractable pain ICD Code: R52 - Pain, unspecified (3) Tobacco abuse ICD Code: Z72.0 - Tobacco use Assessment and Plan 1. Cholecystitis and cholelithiasis status post laparoscopic surgery. She is doing well continue pain management with oxycodone status post Zosyn cleared for discharge by general surgery tolerating diet. Patient counseled regarding narcotic use 2. Transaminitis. Discussed with surgery likely related to procedure. Patient with normal bilirubin. Rpt LFTS in 2 weeks. LFTS wNL prior to sx. CT shows hypodense liver differential diagnosis of hepatocellular disease or fatty infiltration. Outpatient follow-up. Also has mesenteric adenopathy radiology recommends outpatient PET scan. Again discussed with surgery likely related to cholecystitis. Will need outpatient follow-up. Avoid Tylenol 3. Mild hyperglycemia. Obtain fasting glucose this can be done outpatient 4. Tobacco Abuse: Pt counselled, NicoDerm prn if needed DVT Prophylaxis: SCD/Teds Discharge Planning Discharge patient to home Condition on discharge: Improved Regular Diet as tolerated Ad Michelle activity no driving Rx written: Oxycodone Follow-up with primary care physician, surgery and PET scan in 3-4 weeks. LFTs in 2 weeks Mich Moffett MD Sep 15, 2017 10:53
== END 2017-09-15 11:09 | disposition home or self-care (01) | DRG 419 ==
LOC: NEPE 18:52 → EDBD 18:52 → NEDA 09-14 01:30 → N07A 09-14 02:30
PROVIDERS: ADMIT Internal Medicine; ATTEND Internal Medicine
PROC: 0FT44ZZ Resection of Gallbladder, Percutaneous Endoscopic Approach (ICD-10-PCS; principal; 2017-09-14 10:16)
DX: K80.12 Calculus of gallbladder with acute and chronic cholecystitis without obstruction (principal); F17.210 Nicotine dependence, cigarettes, uncomplicated; R73.9 Hyperglycemia, unspecified
CPT/HCPCS: 71045; 71275; 74174; 76705; 80053; 81001; 82550; 83605; 83690; 84484; 85025; 88304; 93005; 96361; 96374; 96375; J0131; J1100; J1170; J2250; J2270; J2405; J2543; J2710; J2765; J3010; J7030; J7120; Q9967

== ENCOUNTER 2017-09-19 16:43 | Observation (INO) | payer MEDICARE, OTHER ==
[~2017-09-19 16:43] MED LIST changes: -ALBU8I INH; +ASPI1POW8 PO; -DOXY100T PO; -LORT7.5T3; +OXYC-392 PO; -SOMA350T
[2017-09-19 17:02] VITALS: BP 189/74; PULSE 63; RESP 16; TEMP 98.2; O2SAT 100
[2017-09-19] MEDS ORDERED: SODIUM CHLOR 0.9% 1000 ML INJ 1,000 ML IV SCH (18:10)
[2017-09-19] MEDS ORDERED: ONDANSETRON HCL 4 MG/2 ML VIAL IVP ONE (18:15)
[2017-09-19] MEDS ORDERED: MORPHINE SULFATE 4 MG/ML INJ IV PUSH ONE (18:15)
[2017-09-19] MEDS ORDERED: HYDROmorphone HCL PF 2 MG/ML VIAL IV PUSH ONE (18:30)
[2017-09-19 18:37] LABS: AUTOMATED NEUTROPHIL # 3.5 TH/MM3 (1.8-7.7); BASOPHIL # 0.1 TH/MM3 (0-0.2); EOSINOPHIL # 0.3 TH/MM3 (0-0.4); EOSINOPHIL % 5.6 % (0.0-4.0); HEMATOCRIT 34.7 % (35.0-46.0); HEMOGLOBIN 11.7 GM/DL (11.6-15.3); LYMPH % 31.1 % (9.0-44.0); LYMPHOCYTE # 1.9 TH/MM3 (1.0-4.8); MEAN CELL VOLUME 89.8 FL (80.0-100.0); MEAN CORPUSCULAR HEMOGLOBIN 30.3 PG (27.0-34.0); MEAN CORPUSCULAR HGB CONC 33.7 % (32.0-36.0); MEAN PLATELET VOLUME 9.6 FL (7.0-11.0); MONO % 6.5 % (0.0-8.0); MONOCYTE # 0.4 TH/MM3 (0-0.9); NEUT % 55.8 % (16.0-70.0); PLATELET COUNT 269 TH/MM3 (150-450); RED BLOOD COUNT 3.86 MIL/MM3 (4.00-5.30); RED CELL DISTRIBUTION WIDTH 14.7 % (11.6-17.2); WHITE BLOOD COUNT 6.2 TH/MM3 (4.0-11.0)
[2017-09-19 18:48] VITALS: RESP 18; O2SAT 97
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
[2017-09-19 18:54] LABS: BACTERIA, URINE MANY /hpf; BILIRUBIN, URINE NEG (NEG); BLOOD, URINE NEG (NEG); GLUCOSE,URINE NEG (NEG); KETONE, URINE NEG (NEG); NITRITE,URINE NEG (NEG); PH, URINE 6.5 (5.0-8.5); SQUAMOUS EPITHELIAL CELL URINE 4 /hpf (0-5); URINE COLOR LIGHT-YELLOW (YELLW/STRAW); URINE LEUKOCYTE ESTERASE NEG (NEG)
[2017-09-19 19:00] LABS: ALBUMIN 2.9 GM/DL (3.4-5.0); ALT (GPT) 188 U/L (10-53); AST (GOT) 132 U/L (15-37); BICARBONATE 28.9 MEQ/L (21.0-32.0); BLOOD UREA NITROGEN 5 MG/DL (7-18); CALCIUM 9.1 MG/DL (8.5-10.1); CHLORIDE 108 MEQ/L (98-107); CREATININE 0.91 MG/DL (0.50-1.00); GLOMERULAR FILTRATION RATE 63 ML/MIN (>89); GLUCOSE,RANDOM 85 MG/DL (74-106); SODIUM (NA) 140 MEQ/L (136-145)
[2017-09-19 19:02] LABS: ALKALINE PHOSPHATASE 214 U/L (45-117); TOTAL BILIRUBIN ADULT 0.4 MG/DL (0.2-1.0); TOTAL PROTEIN 6.8 GM/DL (6.4-8.2)
[2017-09-19] MEDS ORDERED: IOHEXOL 350 MG/ML 10 ML VIAL (for RAD DIAG) IVCONTRAST ONE (19:21)
[2017-09-19] MEDS ORDERED: HYDROmorphone HCL PF 0.5 MG/0.5 ML SYRINGE IV PUSH ONE (20:15)
[2017-09-19] MEDS ORDERED: ONDANSETRON HCL 4 MG/2 ML VIAL IV PUSH ONE (20:15)
--- NOTE | 2017-09-19 20:19 | RADRPT ---
EXAM DATE/TIME: 09/19/2017 19:17 [facility] COMPARISON: No previous studies available for comparison. INDICATIONS : Left chest pain and tachycardia; rule out pulmonary embolus. IV CONTRAST: 98 cc Omnipaque 350 (iohexol) IV ; Cumulative dose for multiple exams. RADIATION DOSE: 18.18 CTDIvol (mGy) MEDICAL HISTORY : None SURGICAL HISTORY : Hysterectomy. Cholecystectomy. ENCOUNTER: Initial ACUITY: 1 day PAIN SCALE: 3/10 LOCATION: chest TECHNIQUE: Volumetric scanning of the chest was performed using a pulmonary embolism protocol MIP images were re constructed. Using automated exposure control and adjustment of the mA and/or kV according to patien t size, radiation dose was kept as low as reasonably achievable to obtain optimal diagnostic quality images. DICOM format image data is available electronically for review and comparison. Follow-up recommendations for detected pulmonary nodules are based at a minimum on nodule size and pa tient risk factors according to Fleischner Society Guidelines. FINDINGS: PULMONARY ARTERIES: No filling defects are seen in the pulmonary arteries through the segmental level. LUNGS: There is no consolidation or pneumothorax . No concerning pulmonary nodule is visualized. PLEURAE: There is no pleural thickening or pleural effusion. MEDIASTINUM: There is good visualization of the great vessels of the middle mediastinum. No evidence of mediastin al or hilar adenopathy/mass. MUSCULOSKELETAL: Within normal limits for patient age. MISCELLANEOUS: The visualized upper abdominal organs demonstrate no acute abnormality. CONCLUSION: No acute disease. No pulmonary embolus is seen. Davis Ortiz MD on September 19, 2017 at 20:16 Board Certified Radiologist. This report was verified electronically.
--- NOTE | 2017-09-19 20:42 | RADRPT ---
EXAM DATE/TIME: 09/19/2017 19:46 [facility] COMPARISON: No previous studies available for comparison. INDICATIONS : Bilateral leg swelling. MEDICAL HISTORY : Headaches. Blood transfusion. SURGICAL HISTORY : Cholecystectomy.Hysterectomy. Left lens replacement. Left hip ORIF. ENCOUNTER: Initial ACUITY: 1 day PAIN SCORE: 2/10 LOCATION: Bilateral legs. TECHNIQUE: Venous ultrasound of the left and right leg was performed from the inguinal ligament to the proximal calf. Real-time, color Doppler and spectral tracing, compression and augmentation techniques were us ed. FINDINGS: RIGHT LEG: There is normal compressibility of the deep venous system from the inguinal region to the proximal ca lf. No echogenic clot is seen in the lumen of the common femoral, femoral, popliteal, and posterior tibial veins. There is a normal response of the venous system to proximal and distal augmentation an d respiration. LEFT LEG: There is normal compressibility of the deep venous system from the inguinal region to the proximal ca lf. No echogenic clot is seen in the lumen of the common femoral, femoral, popliteal, and posterior tibial veins. There is a normal response of the venous system to proximal and distal augmentation an d respiration. CONCLUSION: No DVT. Davis Ortiz MD on September 19, 2017 at 20:40 Board Certified Radiologist. This report was verified electronically.
[2017-09-19 20:59] VITALS: BP 137/63; PULSE 60; RESP 20; O2SAT 99
--- NOTE | 2017-09-19 21:44 | RADRPT ---
EXAM DATE/TIME: 09/19/2017 19:17 [facility] COMPARISON: CTA THORACIC ABDOMINAL AORTA W 3D RECON, September 13, 2017, 23:39. INDICATIONS : Right upper quadrant pain. IV CONTRAST: 98 cc Omnipaque 350 (iohexol) IV ; Cumulative dose for multiple exams. ORAL CONTRAST: No oral contrast ingested. RADIATION DOSE: 24.01 CTDIvol (mGy) MEDICAL HISTORY : None SURGICAL HISTORY : Hysterectomy. Cholecystectomy. ENCOUNTER: Initial ACUITY: 1 day PAIN SCALE: 6/10 LOCATION: abdomen TECHNIQUE: Volumetric scanning of the abdomen and pelvis was performed. Using automated exposure control and ad justment of the mA and/or kV according to patient size, radiation dose was kept as low as reasonably achievable to obtain optimal diagnostic quality images. DICOM format image data is available electro nically for review and comparison. FINDINGS: LOWER LUNGS: The visualized lower lungs are clear. LIVER: Clips are seen in the right upper quadrant. The patient appears to status post cholecystectomy. There is fluid seen in the gallbladder fossa. There is dilatation of the intra-and extra hepatic biliary d ucts. The common bile duct measures 1 cm. There is a small focus of air in the gallbladder fossa. The re is intra-abdominal air seen the peritoneal cavity. There is postoperative change and air seen in t he anterior abdominal wall. SPLEEN: Normal size without lesion. PANCREAS: Within normal limits. KIDNEYS: Normal in size and shape. There is no mass, stone or hydronephrosis. ADRENAL GLANDS: Within normal limits. VASCULAR: There is no aortic aneurysm. Scattered atherosclerotic calcifications are present. BOWEL/MESENTERY: There is free intraperitoneal air seen. There is a mild hiatal hernia. Scattered colonic diverticula are present. ABDOMINAL WALL: Within normal limits. RETROPERITONEUM: Air is seen in the retroperitoneum in the right lateral and posterior abdomen posterior to the right kidney. There is a lobulated cystic mass seen in the left retroperitoneum measuring 4.2 x 3.6 x 2.2 c m. This is nonspecific. There is no lymphadenopathy. BLADDER: No wall thickening or mass. REPRODUCTIVE: The patient is status post hysterectomy. INGUINAL: There is no lymphadenopathy or hernia. MUSCULOSKELETAL: Surgical hardware seen in the left proximal femur from prior ORIF. CONCLUSION: 1. Fluid in the gallbladder fossa. This could be postoperative fluid. This does not appear to have a capsule. A biloma could have a similar appearance. There is intra-and extrahepatic biliary duct dilat ation. 2. Free intraperitoneal air, retroperitoneal, and air within the anterior abdominal wall. Presumably, this is post surgical. This should be correlated with the date of the cholecystectomy. 3. 4 cm lobulated cystic area in the left retroperitoneum likely related to benign cystic change such as a lymphocele. Davis Ortiz MD on September 19, 2017 at 21:33 Board Certified Radiologist. This report was verified electronically.
--- NOTE | 2017-09-19 22:40 | HHI.HP ---
[facility] Kyle Armstrong D.O. Admission Diagnosis intractable abdominal pain, bile duct stone Diagnoses: (1) Intractable pain Diagnosis: Principal (2) Elevated LFTs Diagnosis: Principal (3) HTN (hypertension) Diagnosis: Principal Travel History International Travel<30 Days: No Contact w/Intl Traveler <30 Da: No Traveled to Known Affected Are: No History of Present Illness This is a 62-year-old female with no significant PMH who presented to the ER with complaints of abdominal pain. I admitted pt recently for similar complaints no 09/14/17, found to have cholelithiasis w/ cholecystitis, s/p Lap Shavon by Dr. Walter on 09/14/17. States she was doing well after discharge until about 2 days ago when developed RUQ pain, denies nausea, vomiting or fever. Has been taking Oxycodone at home w/ minimal relief. Also notes intermittent SOB. On arrival, BP 189/74, HR 63, O2 sat 100% RA, Afebrile. CBC unremarkable. Chemistry unremarkable. LFTs elevated, mildly improved in comparison to previous labs. Total Bili 0.4. INR 1.0. UA with bacteriuria. CT Abdomen/Pelvis fluid in gallbladder fossa, could be postoperative fluid, possible biloma, intra-and extrahepatic biliary ductal dilatation, 4 cm lobulated cystic area left retroperitoneum likely benign lymphocele. CTA Pulm negative for PE. LE Doppler negative. Dr. Glass consulted by ER physician, recommended admission for MRCP, GI consulted. Review of Systems Except as stated in HPI: all other systems reviewed are Neg ROS: 14 point review of systems otherwise negative. Past Family Social History Past Medical History PMH: None Past Surgical History PAST SURGICAL HISTORY: Cholecystectomy, Left Eye Surgery, Hysterectomy, Left Femur Surgery Allergies: Coded Allergies: codeine (Unverified Allergy, Intermediate, Itching, 09/19/17) N/V Family History PAST FAMILY HISTORY: Reviewed. No h/o DM or CAD Social History PAST SOCIAL HISTORY: Negative for alcohol or drugs. Smokes 1ppd. Physical Exam Vital Signs Vital Signs Date Time Temp Pulse Resp B/P (MAP) Pulse Ox O2 Delivery O2 Flow Rate FiO2 09/19/17 20:59 60 20 137/63 (87) 99 Room Air 09/19/17 18:48 18 97 Room Air 09/19/17 17:02 98.2 63 16 189/74 (112) 100 Physical Exam PE: GENERAL: Very pleasant middle-aged white female in no acute distress. HEENT: PERRLA, EOMI. No scleral icterus or conjunctival pallor. No lid lag or facial droop. CARDIOVASCULAR: Regular rate and rhythm. No obvious murmurs to auscultation. No chest tenderness to palpation. RESPIRATORY: No obvious rhonchi or wheezing. Clear to auscultation. Breath sounds equal bilaterally. GASTROINTESTINAL: Abdomen soft, RUQ tenderness to palpation, nondistended. BS normal. +bruising MUSCULOSKELETAL: Extremities without clubbing, cyanosis, or edema. No obvious deformities. NEUROLOGICAL: Awake, alert and oriented x4. No focal neurologic deficits. Moving both upper and lower extremities spontaneously. Laboratory Laboratory Tests Test 09/19/17 18:15 09/19/17 18:34 White Blood Count 6.2 Red Blood Count 3.86 Hemoglobin 11.7 Hematocrit 34.7 Mean Corpuscular Volume 89.8 Mean Corpuscular Hemoglobin 30.3 Mean Corpuscular Hemoglobin Concent 33.7 Red Cell Distribution Width 14.7 Platelet Count 269 Mean Platelet Volume 9.6 Neutrophils (%) (Auto) 55.8 Lymphocytes (%) (Auto) 31.1 Monocytes (%) (Auto) 6.5 Eosinophils (%) (Auto) 5.6 Basophils (%) (Auto) 1.0 Neutrophils # (Auto) 3.5 Lymphocytes # (Auto) 1.9 Monocytes # (Auto) 0.4 Eosinophils # (Auto) 0.3 Basophils # (Auto) 0.1 CBC Comment DIFF FINAL Differential Comment Prothrombin Time 10.0 Prothromb Time International Ratio 1.0 Activated Partial Thromboplast Time 24.2 Blood Urea Nitrogen 5 Creatinine 0.91 Random Glucose 85 Total Protein 6.8 Albumin 2.9 Calcium Level 9.1 Alkaline Phosphatase 214 Aspartate Amino Transf (AST/SGOT) 132 Alanine Aminotransferase (ALT/SGPT) 188 Total Bilirubin 0.4 Sodium Level 140 Potassium Level 3.9 Chloride Level 108 Carbon Dioxide Level 28.9 Anion Gap 3 Estimat Glomerular Filtration Rate 63 Lipase 104 Urine Color LIGHT-YELLOW Urine Turbidity CLEAR Urine pH 6.5 Urine Specific [place] 1.003 Urine Protein NEG Urine Glucose (UA) NEG Urine Ketones NEG Urine Occult Blood NEG Urine Nitrite NEG Urine Bilirubin NEG Urine Urobilinogen LESS THAN 2.0 Urine Leukocyte Esterase NEG Urine WBC LESS THAN 1 Urine Squamous Epithelial Cells 4 Urine Bacteria MANY Microscopic Urinalysis Comment CULTURE INDICATED Lactic Acid Level 0.9 Date/Time Source Procedure Growth Status 09/19/17 18:34 Urine Random Urine Urine Culture Pending Received Result Diagram: 09/19/17181409/19/171814 Caprin VTE Risk Assessment Caprini VTE Risk Assessment: No/Low Risk (score <= 1) Caprini Risk Assessment Model Point Value = 1 Point Value = 2 Point Value = 3 Point Value = 5 Age 41-60 Minor surgery BMI > 25 kg/m2 Swollen legs Varicose veins or History of unexplained or recurrent spontaneous Oral contraceptives or hormone replacement Sepsis (< 1 month) Serious lung disease, including pneumonia (< 1 month) Abnormal pulmonary function Acute myocardial infarction Congestive heart failure (< 1 month) History of inflammatory bowel disease Medical patient at bed rest Age 61-74 Arthroscopic surgery Major open surgery (> 45 min) Laparoscopic surgery (> 45 min) Malignancy Confined to bed (> 72 hours) Immobilizing plaster cast Central venous access Age >= 75 History of VTE Family history of VTE Factor V Leiden Prothrombin [id number] Lupus anticoagulant Anticardiolipin antibodies Elevated serum homocysteine Heparin-induced thrombocytopenia Other congenital or acquired thrombophilia Stroke (< 1 month) Elective arthroplasty Hip, pelvis, or leg fracture Acute spinal cord injury (< 1 month) Prophylaxis Regimen Total Risk Factor Score Risk Level Prophylaxis Regimen 0-1 Low Early ambulation 2 Moderate Order ONE of the following: *Sequential Compression Device (SCD) *Heparin 5000 units SQ BID 3-4 Higher Order ONE of the following medications: *Heparin 5000 units SQ TID *Enoxaparin/Lovenox 40 mg SQ daily (WT < 150 kg, CrCl > 30 mL/min) *Enoxaparin/Lovenox 30 mg SQ daily (WT < 150 kg, CrCl > 10-29 mL/min) *Enoxaparin/Lovenox 30 mg SQ BID (WT < 150 kg, CrCl > 30 mL/min) AND/OR *Sequential Compression Device (SCD) 5 or more Highest Order ONE of the following medications: *Heparin 5000 units SQ TID (Preferred with Epidurals) *Enoxaparin/Lovenox 40 mg SQ daily (WT < 150 kg, CrCl > 30 mL/min) *Enoxaparin/Lovenox 30 mg SQ daily (WT < 150 kg, CrCl > 10-29 mL/min) *Enoxaparin/Lovenox 30 mg SQ BID (WT < 150 kg, CrCl > 30 mL/min) AND *Sequential Compression Device (SCD) Assessment and Plan Problem List: (1) Intractable pain ICD Code: R52 - Pain, unspecified (2) Elevated LFTs ICD Code: R79.89 - Other specified abnormal findings of blood chemistry (3) HTN (hypertension) ICD Code: I10 - Essential (primary) hypertension Assessment and Plan A/P: 1. Intractable Abd Pain: recent admit 09/14/17 for RUQ pain, +cholelithiasis/ cholecystitis s/p Lap Shavon by Dr. Walter, now w/ RUQ pain. CT Abd/Pelvis w/ fluid in gallbladder fossa, likely postop fluid or biloma, +intra and extra hepatic biliary ductal dilatation, images reviewed by me. Analgesics/ antiemetics as needed. CTA Pulm negative for PE. 2. Elevated LFTs: ALP increased since last admit, AST/ALT mildly improved, total bili normal, in light of above, possible retained stone, Dr. Lock consulted, recommended MRCP, GI Consulted, will evaluate. Repeat labs in am. Caution w/ Tylenol. 3. HTN: Uncontrolled. BP 180's likely pain related, optimize pain control, monitor BP 4. DVT Prophylaxis: SCD/Teds. 5. Social work for DC planning as needed. 6. Case discussed at length with the ER physician, lab/record/imaging reviewed by me. Geno Millan MD Sep 19, 2017 22:40
[2017-09-19] MEDS ORDERED: SENNOSIDES 8.6 MG TAB PO PRN (22:45)
[2017-09-19] MEDS ORDERED: MORPHINE SULFATE 2 MG/ML SYRINGE IV PUSH PRN (22:45)
[2017-09-19] MEDS ORDERED: SODIUM CHLORIDE 0.9% FLUSH 10 ML FLUSH IV FLUSH PRN (22:45)
[2017-09-19] MEDS ORDERED: LACTULOSE SYRUP 20 GM/30 ML CUP PO PRN (22:45)
[2017-09-19] MEDS ORDERED: BISACODYL 10 MG SUPP RECTAL PRN (22:45)
[2017-09-19] MEDS ORDERED: MAGNESIUM HYDROXIDE SUSP 30 ML CUP PO PRN (22:45)
[2017-09-20] MEDS: SODIUM CHLOR 0.9% 1000 ML INJ 1,000 ML IV SCH ×3 (00:13→22:21)
[2017-09-20] MEDS: ACETAMINOPHEN 325 MG TAB PO PRN ×2 (00:26→17:13)
[2017-09-20 03:30] VITALS: BP 125/58; PULSE 49; RESP 14; O2SAT 100
--- NOTE | 2017-09-20 08:05 | HHI.PR ---
Subjective Remarks in no acute distress. but uncomfortable with abdominal pain. afebrile. d/w the RN. Objective Vitals Vital Signs Date Time Temp Pulse Resp B/P (MAP) Pulse Ox O2 Delivery O2 Flow Rate FiO2 09/20/17 03:30 49 14 125/58 (80) 100 Room Air 09/20/17 00:03 09/19/17 20:59 60 20 137/63 (87) 99 Room Air 09/19/17 18:48 18 97 Room Air 09/19/17 17:02 98.2 63 16 189/74 (112) 100 I/O 09/19/17 09/19/17 09/19/17 09/20/17 09/20/17 09/20/17 07:00 15:00 23:00 07:00 15:00 23:00 Intake Total 1000 ml Balance 1000 ml Intake IV Total 1000 ml Result Diagram: 09/19/17181409/19/171814 Imaging Last Impressions Abdomen/Pelvis CT 09/19/171809 Signed Impressions: Service Date/Time: Tuesday, September 19, 2017 19:17 - CONCLUSION: 1. Fluid in the gallbladder fossa. This could be postoperative fluid. This does not appear to have a capsule. A biloma could have a similar appearance. There is intra-and extrahepatic biliary duct dilatation. 2. Free intraperitoneal air, retroperitoneal, and air within the anterior abdominal wall. Presumably, this is post surgical. This should be correlated with the date of the cholecystectomy. 3. 4 cm lobulated cystic area in the left retroperitoneum likely related to benign cystic change such as a lymphocele. Davis Ortiz MD Lower Extremity Ultrasound 09/19/17 0000 Signed Impressions: Service Date/Time: Tuesday, September 19, 2017 19:46 - CONCLUSION: No DVT. Davis Ortiz MD CT Angiography 09/19/17 0000 Signed Impressions: Service Date/Time: Tuesday, September 19, 2017 19:17 - CONCLUSION: No acute disease. No pulmonary embolus is seen. Davis Ortiz MD Objective Remarks GENERAL: This is a well-nourished, well-developed patient, in no apparent distress. CARDIOVASCULAR: Regular rate and regular rhythm without murmurs, gallops, or rubs. RESPIRATORY: Clear to auscultation. Breath sounds equal bilaterally. No wheezes , rales, or rhonchi. GASTROINTESTINAL: Abdomen soft, RUQ tenderness, nondistended. Normal, active bowel sounds MUSCULOSKELETAL: Extremities without clubbing, cyanosis, or edema. NEURO: Alert & Oriented x4 to person, place, time, situation. Moves all ext x4 Medications and IVs Inpatient Medications Acetaminophen (Tylenol) 650 mg Q6H PRN PO FEVER/PAIN SCALE 1 TO 2 Last administered on 09/20/17at 00:26; Start 09/19/17 at 22:45 Bisacodyl (Dulcolax Supp) 10 mg DAILY PRN RECTAL SEVERE CONSITIPATION; Start at 22:45 Hydromorphone HCl (Dilaudid Pf Inj) 0.5 mg ONCE ONCE IV PUSH Last administered on 09/19/17at 20:55; Start 09/19/17 at 20:15; Stop 09/19/17 at 20:16 ; Status DC Lactulose (Lactulose Liq) 30 ml DAILY PRN PO SEVERE CONSITIPATION; Start at 22:45 Magnesium Hydroxide (Milk Of Magnesia Liq) 30 ml Q12H PRN PO Mild constipation ; Start 09/19/17 at 22:45 Morphine Sulfate (Morphine Inj) 2 mg Q3H PRN IV PUSH Pain 6-10; Start 09/19/17 at 22:45 Ondansetron HCl (Zofran Inj) 4 mg Q6H PRN IVP NAUSEA OR VOMITING; Start at 22:45 Oxycodone HCl (Roxicodone) 5 mg Q4H PRN PO PAIN SCALE 3 TO 5; Start 09/19/17 at 22:45 Senna/Docusate Sodium (Sakina-Colace) 1 tab BID PO ; Start 09/20/17 at 09:00 Sennosides (Senokot) 17.2 mg Q12H PRN PO Moderate constipation; Start 09/19/17 at 22:45 Sodium Chloride (NS Flush) 2 ml BID IV FLUSH ; Start 09/20/17 at 09:00 A/P Problem List: (1) Intractable pain ICD Code: R52 - Pain, unspecified (2) Elevated LFTs ICD Code: R79.89 - Other specified abnormal findings of blood chemistry (3) HTN (hypertension) ICD Code: I10 - Essential (primary) hypertension Assessment and Plan A/P 1. Intractable Abd Pain: recent admit 09/14/17 for RUQ pain, +cholelithiasis/ cholecystitis s/p Lap Shavon by Dr. Walter, now w/ RUQ pain. CT Abd/Pelvis w/ fluid in gallbladder fossa, likely postop fluid or biloma, +intra and extra hepatic biliary ductal dilatation. Analgesics/antiemetics as needed. CTA Pulm negative for PE. surgery and GI consulted. 2. Elevated LFTs: ALP increased since last admit, AST/ALT mildly improved, total bili normal, in light of above, possible retained stone, Dr. Lock consulted, recommended MRCP, GI Consulted, will evaluate. 3. HTN: Uncontrolled. BP 180's likely pain related, optimize pain control, monitor BP 4. DVT Prophylaxis: SCD/Teds. Gigi Chowdhury MD Sep 20, 2017 08:05
[2017-09-20] MEDS: ONDANSETRON HCL 4 MG/2 ML VIAL IVP PRN ×2 (08:12→11:39)
--- NOTE | 2017-09-20 08:44 | PD.CONS ---
HPI History of Present Illness This is a 62 year old who presented to the ER with complaints of RUQ abdominal pain. Pt underwent recent laparoscopic cholecystectomy by Dr. Walter on September 14 for cholelithiasis with cholecystitis. Pt states she had some pain post surgical but described it as just soreness. States the pain has been progressing and now describes it with intermittent sharp, stabbing pains. Associated nausea, denies emesis. Reports of chills, denies fevers. Reports diarrhea, has had this issue for two weeks. Last BM was yesterday. Denies blood in the stool. Our service has been consulted to evaluate patient for elevated LFTs and CT findings. Of note, pt with transaminitis after lap rolan per previous progress notes, surgery related it to the procedure. Pt was advised to have repeat labs in 2 weeks and avoid Tylenol. Pt denies history of liver issues. Denies ETOH, smoking. Of note, she does take Goodys Powder daily for headaches. Has never had EGD or colonoscopy. [facility] Past Medical History Denies Past Surgical History PAST SURGICAL HISTORY: Cholecystectomy, Left Eye Surgery, Hysterectomy, Left Femur Surgery Coded Allergies: codeine (Unverified Allergy, Intermediate, Itching, 09/19/17) N/V Family History PAST FAMILY HISTORY: Reviewed. No h/o DM or CAD Social History PAST SOCIAL HISTORY: Negative for alcohol or drugs. Review of Systems Gastrointestinal: COMPLAINS OF: Abdominal pain, Diarrhea, Nausea, DENIES: Black stools, Bloody stools, Constipation, Vomiting, Difficulty Swallowing, Odynophagia, Swelling of Abdomen, Heartburn, Hematemesis GI Exam Vitals I&O Vital Signs Date Time Temp Pulse Resp B/P (MAP) Pulse Ox O2 Delivery O2 Flow Rate FiO2 09/20/17 03:30 49 14 125/58 (80) 100 Room Air 09/20/17 00:03 09/19/17 20:59 60 20 137/63 (87) 99 Room Air 09/19/17 18:48 18 97 Room Air 09/19/17 17:02 98.2 63 16 189/74 (112) 100 I/O 09/19/17 09/19/17 09/19/17 09/20/17 09/20/17 09/20/17 07:00 15:00 23:00 07:00 15:00 23:00 Intake Total 1000 ml Balance 1000 ml Intake IV Total 1000 ml Imaging Last Impressions Abdomen/Pelvis CT 09/19/17 1810 Signed Impressions: Service Date/Time: Tuesday, September 19, 2017 19:17 - CONCLUSION: 1. Fluid in the gallbladder fossa. This could be postoperative fluid. This does not appear to have a capsule. A biloma could have a similar appearance. There is intra-and extrahepatic biliary duct dilatation. 2. Free intraperitoneal air, retroperitoneal, and air within the anterior abdominal wall. Presumably, this is post surgical. This should be correlated with the date of the cholecystectomy. 3. 4 cm lobulated cystic area in the left retroperitoneum likely related to benign cystic change such as a lymphocele. Davis Ortiz MD Lower Extremity Ultrasound 09/19/17 0000 Signed Impressions: Service Date/Time: Tuesday, September 19, 2017 19:46 - CONCLUSION: No DVT. Davis Ortiz MD CT Angiography 09/19/17 0000 Signed Impressions: Service Date/Time: Tuesday, September 19, 2017 19:17 - CONCLUSION: No acute disease. No pulmonary embolus is seen. Davis Ortiz MD Laboratory Test 09/19/17 18:15 09/19/17 18:34 09/19/17 23:57 White Blood Count 6.2 TH/MM3 Red Blood Count 3.86 MIL/MM3 Hemoglobin 11.7 GM/DL Hematocrit 34.7 % Mean Corpuscular Volume 89.8 FL Mean Corpuscular Hemoglobin 30.3 PG Mean Corpuscular Hemoglobin Concent 33.7 % Red Cell Distribution Width 14.7 % Platelet Count 269 TH/MM3 Mean Platelet Volume 9.6 FL Neutrophils (%) (Auto) 55.8 % Lymphocytes (%) (Auto) 31.1 % Monocytes (%) (Auto) 6.5 % Eosinophils (%) (Auto) 5.6 % Basophils (%) (Auto) 1.0 % Neutrophils # (Auto) 3.5 TH/MM3 Lymphocytes # (Auto) 1.9 TH/MM3 Monocytes # (Auto) 0.4 TH/MM3 Eosinophils # (Auto) 0.3 TH/MM3 Basophils # (Auto) 0.1 TH/MM3 CBC Comment DIFF FINAL Differential Comment Prothrombin Time 10.0 SEC Prothromb Time International Ratio 1.0 RATIO Activated Partial Thromboplast Time 24.2 SEC Blood Urea Nitrogen 5 MG/DL Creatinine 0.91 MG/DL Random Glucose 85 MG/DL Total Protein 6.8 GM/DL Albumin 2.9 GM/DL Calcium Level 9.1 MG/DL Alkaline Phosphatase 214 U/L Aspartate Amino Transf (AST/SGOT) 132 U/L Alanine Aminotransferase (ALT/SGPT) 188 U/L Total Bilirubin 0.4 MG/DL Sodium Level 140 MEQ/L Potassium Level 3.9 MEQ/L Chloride Level 108 MEQ/L Carbon Dioxide Level 28.9 MEQ/L Anion Gap 3 MEQ/L Estimat Glomerular Filtration Rate 63 ML/MIN Lipase 104 U/L Urine Color LIGHT-YELLOW Urine Turbidity CLEAR Urine pH 6.5 Urine Specific [place] 1.003 Urine Protein NEG mg/dL Urine Glucose (UA) NEG mg/dL Urine Ketones NEG mg/dL Urine Occult Blood NEG Urine Nitrite NEG Urine Bilirubin NEG Urine Urobilinogen LESS THAN 2.0 MG/DL Urine Leukocyte Esterase NEG Urine WBC LESS THAN 1 /hpf Urine Squamous Epithelial Cells 4 /hpf Urine Bacteria MANY /hpf Microscopic Urinalysis Comment CULTURE INDICATED Lactic Acid Level 0.9 mmol/L Date/Time Source Procedure Growth Status 09/19/17 18:34 Urine Random Urine Urine Culture Pending Received Physical Examination HEENT: Normocephalic; atraumatic CHEST: Even/unlabored CARDIAC: RRR ABDOMEN: Round, soft, upper abdominal TTP, bowel sounds active SKIN: Normal; no rash; no jaundice. 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 Assessment and Plan Plan Assessment: - Elevated LFTs- Elevated during previous post surgical- according to previous progress notes, according to surgery this was likely for lap rolan procedure. On 09/15 LFTs: AST-252 ALT-321 Alk phos-121 T bili- 0.6 Today (09/20) AST:132 ALT-188 Alk phos-214 T bili-0.4 LFTs were normal day prior to procedure Pt denies history of liver issues, ETOH, Tylenol, illicit drugs, OTC herbs and supplements - Abdominal pain with nausea, denies emesis S/P lap cholecystectomy on 09/14- CT abdomen and pelvis W IV contrast (09/19) --> Fluid in the gallbladder fossa. This could be postoperative fluid. This does not appear to have a capsule. A biloma could have a similar appearance. There is intra-and extrahepatic biliary duct dilatation. Free intraperitoneal air, retroperitoneal, and air within the anterior abdominal wall. Presumably, this is post surgical. 4 cm lobulated cystic area in the left retroperitoneum likely related to benign cystic change such as a lymphocele Plan: MRCP Monitor LFTs- trending down since post op day 1 Alk phos iso enzymes per attending Nausea medication PRN Pain control GS consult pending Further recommendations based on findings of above and clinical course Pt has been seen and examined by myself and Dr. Liao and this note is written on his behalf Lucita Brewster Sep 20, 2017 08:44
[2017-09-20] MEDS: SODIUM CHLORIDE 0.9% FLUSH 10 ML FLUSH IV FLUSH SCH ×2 (09:00→22:21)
[2017-09-20 09:08] VITALS: BP 133/63; PULSE 78; RESP 18; O2SAT 97
[2017-09-20 09:26] LABS: AUTOMATED NEUTROPHIL # 3.6 TH/MM3 (1.8-7.7); BASOPHIL % 0.8 % (0.0-2.0); EOSINOPHIL # 0.3 TH/MM3 (0-0.4); EOSINOPHIL % 5.8 % (0.0-4.0); HEMOGLOBIN 10.6 GM/DL (11.6-15.3); LYMPH % 22.7 % (9.0-44.0); LYMPHOCYTE # 1.3 TH/MM3 (1.0-4.8); MEAN CELL VOLUME 91.8 FL (80.0-100.0); MEAN CORPUSCULAR HEMOGLOBIN 30.3 PG (27.0-34.0); MEAN PLATELET VOLUME 9.3 FL (7.0-11.0); MONO % 7.5 % (0.0-8.0); MONOCYTE # 0.4 TH/MM3 (0-0.9); NEUT % 63.2 % (16.0-70.0); PLATELET COUNT 228 TH/MM3 (150-450); RED BLOOD COUNT 3.48 MIL/MM3 (4.00-5.30); RED CELL DISTRIBUTION WIDTH 14.7 % (11.6-17.2); WHITE BLOOD COUNT 5.6 TH/MM3 (4.0-11.0)
[2017-09-20] MEDS: DOCUSATE SODIUM 50 MG/SENNA 8.6 MG TAB PO SCH ×2 (09:30→22:22)
[2017-09-20] MEDS: HYDROmorphone HCL PF 2 MG/ML VIAL IV PUSH PRN ×3 (09:30→18:06)
[2017-09-20 09:47] LABS: ALBUMIN 2.7 GM/DL (3.4-5.0); AST (GOT) 68 U/L (15-37); BICARBONATE 23.5 MEQ/L (21.0-32.0); BLOOD UREA NITROGEN 4 MG/DL (7-18); CALCIUM 8.3 MG/DL (8.5-10.1); CHLORIDE 109 MEQ/L (98-107); CREATININE 0.67 MG/DL (0.50-1.00); GLOMERULAR FILTRATION RATE 90 ML/MIN (>89); GLUCOSE,RANDOM 80 MG/DL (74-106); SODIUM (NA) 141 MEQ/L (136-145)
[2017-09-20 09:51] LABS: ALKALINE PHOSPHATASE 169 U/L (45-117); ALT (GPT) 133 U/L (10-53); TOTAL BILIRUBIN ADULT 0.4 MG/DL (0.2-1.0); TOTAL PROTEIN 5.9 GM/DL (6.4-8.2)
--- NOTE | 2017-09-20 10:54 | RADRPT ---
EXAM DATE/TIME: 09/20/2017 09:54 [place] COMPARISON: CT ABDOMEN & PELVIS W CONTRAST, September 19, 2017, 19:17. INDICATIONS : Abdominal pain. Status post recent cholecystectomy approximately 6 days ago. MEDICAL HISTORY : None. SURGICAL HISTORY : Cholecystectomy. Hysterectomy. ENCOUNTER: Initial ACUITY: 1 day PAIN SCORE: 5/10 LOCATION: Abdomen. TECHNIQUE: Multiplanar, multisequence magnetic resonance imaging of the abdomen was performed. High-resolution 3D dataset was utilized to reconstruct maximum-intensity projection (MIP) images. FINDINGS: INTRAHEPATIC BILE DUCTS: Within normal limits status post cholecystectomy. No significant anatomical variant is present. EXTRAHEPATIC BILE DUCTS: The common bile duct measures 9 mm No stone or filling defect is identified. GALLBLADDER: Status post cholecystectomy with mild inflammatory change and fluid in the region the gallbladder fos sa. LIVER: Normal size and signal intensity. No concerning liver lesion is identified on this non-contrast exam. PANCREAS: The main pancreatic duct is normal in size. There is no significant anatomical variant. Signal inte nsity is within normal limits. No mass is visualized on this non-contrast exam. OTHER: The remaining visualized structures demonstrate no acute abnormality on this non-contrast exam. Posts urgical changes are noted involving the anterior abdominal wall musculature. There is a lobular cysti c collection again noted in left retroperitoneum measuring 4.2 x 3 cm in diameter which may represent a lymphocele. CONCLUSION: 1. Status post recent cholecystectomy with expected postsurgical changes including small amount of fl uid and mild inflammatory change in the gallbladder fossa region. Followup imaging could be performed if there is clinical concern for bile leak. 2. The common bile duct measures up to 9 mm which can be seen after cholecystectomy. 3. Lobular fluid collection left retroperitoneum again noted which may represent a lymphocele. Clive Burton MD on September 20, 2017 at 10:46 Board Certified Radiologist. This report was verified electronically.
[2017-09-20] MEDS: PIPERACIL-TAZO 3.375 GM PREMIX 50 ML IV SCH ×2 (13:52→22:21)
[2017-09-20] MEDS: PANTOPRAZOLE SODIUM 40 MG VIAL IV PUSH SCH (13:52)
[2017-09-20 13:53] VITALS: BP 125/59; PULSE 68; RESP 18; O2SAT 99
[2017-09-20] MEDS: METOCLOPRAMIDE HCL 10 MG/2 ML VIAL IV PUSH PRN (13:53)
--- NOTE | 2017-09-20 14:14 | MB ---
cc: Kyle Lock MD DATE: 09/20/2017 REQUESTING PHYSICIAN: Dr. Geno Millan. REASON FOR CONSULTATION: Right upper quadrant pain, elevated LFTs after laparoscopic cholecystectomy. HISTORY OF PRESENT ILLNESS: The patient is a 62-year-old female who is status post laparoscopic cholecystectomy by Dr. Justin Walter on 09/14/2017. At that time, the findings were an inflamed, distended gallbladder with multiple gallstones. This apparently was unremarkable at that time. This was done for acute cholecystitis. The patient was home when she developed 24 hours of increased right upper quadrant pain, nausea, and vomiting. She presented to the emergency department and found to have mildly elevated transaminases, AST 132, ALT 188, alkaline phosphatase 214. Bilirubin is normal. White blood cell count was within normal limits. The patient was also noted to have a urinalysis with many bacteria with culture indicated. The patient was admitted. GI surgery and gastroenterology were consulted. The patient states that her right upper quadrant pain was significantly associated with palpitations and shortness of breath. She has been having bowel movements since surgery and is able to tolerate a diet. She denies fever, chills or night sweats. She denies chest pain at this time. A CT angiogram was negative. CT abdomen and pelvis just shows really no surgical complication. MRCP shows no bile duct stones. REVIEW OF SYSTEMS: A 12-point review of systems conducted with the patient is negative except for the pertinent positives mentioned above in the history of present illness. PAST MEDICAL HISTORY: Gallstones, status post acute cholecystitis as above. PAST SURGICAL HISTORY: Cholecystectomy as above with a hysterectomy and the left femur surgery. ALLERGIES: CODEINE. SOCIAL HISTORY: Smokes 1 pack of cigarettes per day. Denies alcohol or illicit drug use. MEDICATIONS: No home medications. FAMILY HISTORY: Noncontributory. PHYSICAL EXAMINATION: VITAL SIGNS: Blood pressure is 133/63, heart rate 78, afebrile, O2 saturation 97% GENERAL: The patient is a well-developed, well-nourished, female, in no acute distress. HEENT: Head is normocephalic, atraumatic. Pupils equal, round, reactive to light. Sclerae are anicteric. Oral cavity is clear. Airway is patent. NECK: Supple. No JVD. LUNGS: Breath sounds present bilaterally. Nonlabored breathing pattern. HEART: Regular rate and rhythm. PMI is nondisplaced. ABDOMEN: Soft, subjectively tender on the right side without rebound tenderness or peritonitis. Surgical incisions are well healed without complication. BACK: No CVA tenderness. EXTREMITIES: No clubbing, cyanosis or edema. NEUROLOGIC: The patient is alert and oriented x 3. Nonfocal peripheral exam. Cranial nerves 2-12 are grossly intact. ASSESSMENT AND PLAN: The patient is a 62-year-old female several days status post laparoscopic cholecystectomy. Clinically, we have a high suspicion for retained bile duct stones after cholecystectomy due to her symptomatology and labs; however, an MRCP does not show any definitive stones. I agree with the gastroenterology consultation as well as their recommendations. We will go ahead and place the patient on antibiotics as there was some inflammation in the gallbladder fossa. Again, this is unlikely an active infection, probably just inflammation from the surgery, but we will cover any possible infection as well as possible UTI as the patient has a positive UA. I do not recommend any acute surgical intervention at this time. We will follow along with the patient. Dr. Walter will see the patient back when he returns on Friday. Thank you very much for this consultation and for your assistance in caring for this patient. MD BRIAN Mosley/GURMEET , 12:54 PM , 02:13 PM
[2017-09-20 14:50] VITALS: BP 110/57; PULSE 53; RESP 18; TEMP 98.9; O2SAT 96
--- NOTE | 2017-09-20 18:58 | EKG ---
Date Performed: 09/19/2017 Time Performed: 19:09:04 PTAGE: 62 years EKG: SINUS BRADYCARDIA LOW QRS VOLTAGE IN PRECORDIAL LEADS MODERATE ST DEPRESSION Compared to pr evious tracing, bradycardia is new ABNORMAL ECG PREVIOUS TRACING : 09/13/2017 19.30 DOCTOR: Jostin Scales Interpretating Date/Time 09/20/2017 18:57:15
[2017-09-20] MEDS ORDERED: diphenhydrAMINE HCL 25 MG CAP PO ONE (19:30)
[2017-09-20] MEDS ORDERED: diphenhydrAMINE HCL 50 MG/ML VIAL IV PUSH ONE (19:30)
[2017-09-20 20:13] VITALS: BP 98/61; PULSE 57; RESP 16; TEMP 97.7; O2SAT 97
[2017-09-21 00:59] VITALS: BP 124/60; PULSE 58; RESP 16; TEMP 97.8; O2SAT 95
[2017-09-21] MEDS: PIPERACIL-TAZO 3.375 GM PREMIX 50 ML IV SCH ×4 (02:20→20:51)
[2017-09-21] MEDS: HYDROmorphone HCL PF 2 MG/ML VIAL IV PUSH PRN ×3 (02:20→20:51)
[2017-09-21 03:50] VITALS: BP 82/45; PULSE 52; RESP 16; TEMP 97.9; O2SAT 34
[2017-09-21 07:32] VITALS: BP 119/59; PULSE 66; RESP 18; TEMP 98.8; O2SAT 97
[2017-09-21] MEDS: DOCUSATE SODIUM 50 MG/SENNA 8.6 MG TAB PO SCH ×2 (08:06→20:51)
[2017-09-21] MEDS: SODIUM CHLOR 0.9% 1000 ML INJ 1,000 ML IV SCH ×2 (08:06→09:06)
[2017-09-21] MEDS: SODIUM CHLORIDE 0.9% FLUSH 10 ML FLUSH IV FLUSH SCH ×2 (08:06→20:52)
[2017-09-21] MEDS: ONDANSETRON HCL 4 MG/2 ML VIAL IVP PRN (08:20)
[2017-09-21 09:20] LABS: ALBUMIN 2.6 GM/DL (3.4-5.0); AST (GOT) 111 U/L (15-37); BLOOD UREA NITROGEN 3 MG/DL (7-18); CALCIUM 8.6 MG/DL (8.5-10.1); CHLORIDE 110 MEQ/L (98-107); CREATININE 0.85 MG/DL (0.50-1.00); GLOMERULAR FILTRATION RATE 68 ML/MIN (>89); GLUCOSE,RANDOM 86 MG/DL (74-106); SODIUM (NA) 142 MEQ/L (136-145)
[2017-09-21 09:21] LABS: ALT (GPT) 155 U/L (10-53)
[2017-09-21 09:23] LABS: ALKALINE PHOSPHATASE 220 U/L (45-117); TOTAL BILIRUBIN ADULT 0.4 MG/DL (0.2-1.0); TOTAL PROTEIN 5.9 GM/DL (6.4-8.2)
[2017-09-21] MEDS ORDERED: POTASSIUM CHLORIDE 20 MEQ CONTROLLED RELEASE TAB PO ONE (11:00)
--- NOTE | 2017-09-21 11:07 | HHI.PR ---
Subjective Remarks in no acute distress. still with some RUQ pain and some nausea but with no emesis. afebrile. Objective Vitals Vital Signs Date Time Temp Pulse Resp B/P (MAP) Pulse Ox O2 Delivery O2 Flow Rate FiO2 09/21/17 07:32 98.8 66 18 119/59 (79) 97 09/21/17 03:50 97.9 52 16 82/45 (57) 34 09/21/17 02:50 12 09/21/17 00:59 97.8 58 16 124/60 (81) 95 09/21/17 00:28 12 09/20/17 20:13 97.7 57 16 98/61 (73) 97 09/20/17 14:50 98.9 53 18 110/57 (74) 96 09/20/17 13:53 68 18 125/59 (81) 99 Room Air I/O 09/20/17 09/20/17 09/20/17 09/21/17 09/21/17 09/21/17 07:00 15:00 23:00 07:00 15:00 23:00 Intake Total 120 ml Balance 120 ml Intake Oral 120 ml # Voids 1 Result Diagram: 09/20/17 0903 09/21/17 0830 Imaging Last Impressions Cholangiopancreatography MRI 09/20/17 0000 Signed Impressions: Service Date/Time: Wednesday, September 20, 2017 09:54 - CONCLUSION: 1. Status post recent cholecystectomy with expected postsurgical changes including small amount of fluid and mild inflammatory change in the gallbladder fossa region. Followup imaging could be performed if there is clinical concern for bile leak. 2. The common bile duct measures up to 9 mm which can be seen after cholecystectomy. 3. Lobular fluid collection left retroperitoneum again noted which may represent a lymphocele. Clive Burton MD Abdomen/Pelvis CT 09/19/17 1810 Signed Impressions: Service Date/Time: Tuesday, September 19, 2017 19:17 - CONCLUSION: 1. Fluid in the gallbladder fossa. This could be postoperative fluid. This does not appear to have a capsule. A biloma could have a similar appearance. There is intra-and extrahepatic biliary duct dilatation. 2. Free intraperitoneal air, retroperitoneal, and air within the anterior abdominal wall. Presumably, this is post surgical. This should be correlated with the date of the cholecystectomy. 3. 4 cm lobulated cystic area in the left retroperitoneum likely related to benign cystic change such as a lymphocele. Davis Ortiz MD Lower Extremity Ultrasound 09/19/17 0000 Signed Impressions: Service Date/Time: Tuesday, September 19, 2017 19:46 - CONCLUSION: No DVT. Davis Ortiz MD CT Angiography 09/19/17 0000 Signed Impressions: Service Date/Time: Tuesday, September 19, 2017 19:17 - CONCLUSION: No acute disease. No pulmonary embolus is seen. Davis Ortiz MD Objective Remarks GENERAL: This is a well-nourished, well-developed patient, in no apparent distress. CARDIOVASCULAR: Regular rate and regular rhythm without murmurs, gallops, or rubs. RESPIRATORY: Clear to auscultation. Breath sounds equal bilaterally. No wheezes , rales, or rhonchi. GASTROINTESTINAL: Abdomen soft, RUQ tenderness, nondistended. Normal, active bowel sounds MUSCULOSKELETAL: Extremities without clubbing, cyanosis, or edema. NEURO: Alert & Oriented x4 to person, place, time, situation. Moves all ext x4 Medications and IVs Inpatient Medications Acetaminophen (Tylenol) 650 mg Q6H PRN PO FEVER/PAIN SCALE 1 TO 2 Last administered on 09/20/17at 17:13; Start 09/19/17 at 22:45 Bisacodyl (Dulcolax Supp) 10 mg DAILY PRN RECTAL SEVERE CONSITIPATION; Start at 22:45 Diphenhydramine HCl (Benadryl Inj) 25 mg ONCE ONCE IV PUSH Last administered on 09/20/17at 19:29; Start 09/20/17 at 19:30; Stop 09/20/17 at 19:31; Status DC Diphenhydramine HCl (Benadryl) 25 mg ONCE ONCE PO Last administered on at 19:29; Start 09/20/17 at 19:30; Stop 09/20/17 at 19:31; Status DC Hydromorphone HCl (Dilaudid Pf Inj) 1 mg Q4H PRN IV PUSH PAIN 6-10 Last administered on 09/21/17at 08:14; Start 09/20/17 at 09:30 Lactulose (Lactulose Liq) 30 ml DAILY PRN PO SEVERE CONSITIPATION; Start at 22:45 Magnesium Hydroxide (Milk Of Magnmary Liq) 30 ml Q12H PRN PO Mild constipation ; Start 09/19/17 at 22:45 Metoclopramide HCl (Reglan Inj) 10 mg Q8H PRN IV PUSH Nausea Last administered on 09/20/17at 13:53; Start 09/20/17 at 13:15 Morphine Sulfate (Morphine Inj) 2 mg Q3H PRN IV PUSH Pain 6-10 Last administered on 09/20/17at 08:12; Start 09/19/17 at 22:45; Stop 09/20/17 at 09:03 ; Status DC Ondansetron HCl (Zofran Inj) 4 mg Q6H PRN IVP NAUSEA OR VOMITING Last administered on 09/21/17at 08:20; Start 09/19/17 at 22:45 Oxycodone HCl (Roxicodone) 5 mg Q4H PRN PO PAIN SCALE 3 TO 5 Last administered on 09/21/17at 10:02; Start 09/19/17 at 22:45 Pantoprazole Sodium (Protonix Inj) 40 mg Q24H IV PUSH Last administered on 09/20at 13:52; Start 09/20/17 at 14:00 Piperacillin Sod/ Tazobactam Sod 50 ml @ 100 mls/hr Q6H IV Last administered on 09/21/17at 08:05; Start 09/20/17 at 14:00 Senna/Docusate Sodium (Sakina-Colace) 1 tab BID PO Last administered on at 08:06; Start 09/20/17 at 09:00 Sennosides (Senokot) 17.2 mg Q12H PRN PO Moderate constipation; Start 09/19/17 at 22:45 Sodium Chloride (NS Flush) 2 ml BID IV FLUSH ; Start 09/20/17 at 09:00 A/P Problem List: (1) Intractable pain ICD Code: R52 - Pain, unspecified (2) Elevated LFTs ICD Code: R79.89 - Other specified abnormal findings of blood chemistry (3) HTN (hypertension) ICD Code: I10 - Essential (primary) hypertension Assessment and Plan A/P 1. Intractable Abd Pain: recent admit 09/14/17 for RUQ pain, +cholelithiasis/ cholecystitis s/p Lap Shavon by Dr. Walter, now w/ RUQ pain. CT Abd/Pelvis w/ fluid in gallbladder fossa, likely postop fluid or biloma, + intra and extra hepatic biliary ductal dilatation. MRCP with small amount of fluid and inflammatory changes in GB fossa- started on IV antibiotics- surgery and GI following. 2. Elevated LFTs: will monitor the trend- GI and surgery f/u as noted above. 3. elevated BP at the time of presentation- now BP is much better. continue to monitor. 4. DVT Prophylaxis: SCD/Teds. Discharge Planning when cleared by GI and surgery. Gigi Chowdhury MD Sep 21, 2017 11:07
--- NOTE | 2017-09-21 12:23 | HHI.PR ---
Subjective Subjective Notes still with pain, mainly RUQ, no N/V, no fevers Objective Vitals/I&O Vital Signs Date Time Temp Pulse Resp B/P (MAP) Pulse Ox O2 Delivery O2 Flow Rate FiO2 09/21/17 07:32 98.8 66 18 119/59 (79) 97 09/20/17 13:53 Room Air Labs Laboratory Tests Test 09/21/17 08:30 Blood Urea Nitrogen 3 Creatinine 0.85 Random Glucose 86 Total Protein 5.9 Albumin 2.6 Calcium Level 8.6 Alkaline Phosphatase 220 Aspartate Amino Transf (AST/SGOT) 111 Alanine Aminotransferase (ALT/SGPT) 155 Total Bilirubin 0.4 Sodium Level 142 Potassium Level 3.4 Chloride Level 110 Carbon Dioxide Level 25.0 Anion Gap 7 Estimat Glomerular Filtration Rate 68 Date/Time Source Procedure Growth Status 09/19/17 18:34 Urine Random Urine Urine Culture - Final NO GROWTH IN 48 HOURS. Complete Abdomen: Non-distended, Post-op tenderness, BS normal Wound Wound : Wound Location: Abdomen Appearance: Clean & Dry A/P Assessment and Plan s/p lap rolan, mild LFT elevation no evidence of CBD stone or bile leak source of pain not clear await GI input dizziness and palpitations per Nazario Degroto MD Sep 21, 2017 12:23
[2017-09-21 12:38] VITALS: BP 97/56; PULSE 56; RESP 18; TEMP 98.4; O2SAT 98
[2017-09-21] MEDS: PANTOPRAZOLE SODIUM 40 MG VIAL IV PUSH SCH (14:08)
--- NOTE | 2017-09-21 15:32 | HHI.GIFU ---
Subjective Remarks Pt resting in bed Continued RUQ abdominal pain Some nausea, denies emesis Seems to be eating ok (Lucita Brewster) Objective Vitals I&O Vital Signs Date Time Temp Pulse Resp B/P (MAP) Pulse Ox O2 Delivery O2 Flow Rate FiO2 09/21/17 15:07 18 09/21/17 12:38 98.4 56 18 97/56 (70) 98 09/21/17 07:32 98.8 66 18 119/59 (79) 97 09/21/17 03:50 97.9 52 16 82/45 (57) 34 09/21/17 02:50 12 09/21/17 00:59 97.8 58 16 124/60 (81) 95 09/20/17 20:13 97.7 57 16 98/61 (73) 97 I/O 09/20/17 09/20/17 09/20/17 09/21/17 09/21/17 09/21/17 07:00 15:00 23:00 07:00 15:00 23:00 Intake Total 120 ml Balance 120 ml Intake Oral 120 ml # Voids 1 Laboratory Laboratory Tests Test 09/21/17 08:30 Blood Urea Nitrogen 3 Creatinine 0.85 Random Glucose 86 Total Protein 5.9 Albumin 2.6 Calcium Level 8.6 Alkaline Phosphatase 220 Aspartate Amino Transf (AST/SGOT) 111 Alanine Aminotransferase (ALT/SGPT) 155 Total Bilirubin 0.4 Sodium Level 142 Potassium Level 3.4 Chloride Level 110 Carbon Dioxide Level 25.0 Anion Gap 7 Estimat Glomerular Filtration Rate 68 Date/Time Source Procedure Growth Status 09/19/17 18:34 Urine Random Urine Urine Culture - Final NO GROWTH IN 48 HOURS. Complete Imaging Last Impressions Cholangiopancreatography MRI 09/20/17 0000 Signed Impressions: Service Date/Time: Wednesday, September 20, 2017 09:54 - CONCLUSION: 1. Status post recent cholecystectomy with expected postsurgical changes including small amount of fluid and mild inflammatory change in the gallbladder fossa region. Followup imaging could be performed if there is clinical concern for bile leak. 2. The common bile duct measures up to 9 mm which can be seen after cholecystectomy. 3. Lobular fluid collection left retroperitoneum again noted which may represent a lymphocele. Clive Burton MD Abdomen/Pelvis CT 09/19/17 1810 Signed Impressions: Service Date/Time: Tuesday, September 19, 2017 19:17 - CONCLUSION: 1. Fluid in the gallbladder fossa. This could be postoperative fluid. This does not appear to have a capsule. A biloma could have a similar appearance. There is intra-and extrahepatic biliary duct dilatation. 2. Free intraperitoneal air, retroperitoneal, and air within the anterior abdominal wall. Presumably, this is post surgical. This should be correlated with the date of the cholecystectomy. 3. 4 cm lobulated cystic area in the left retroperitoneum likely related to benign cystic change such as a lymphocele. Davis Ortiz MD Lower Extremity Ultrasound 09/19/17 0000 Signed Impressions: Service Date/Time: Tuesday, September 19, 2017 19:46 - CONCLUSION: No DVT. Davis Ortiz MD CT Angiography 09/19/17 0000 Signed Impressions: Service Date/Time: Tuesday, September 19, 2017 19:17 - CONCLUSION: No acute disease. No pulmonary embolus is seen. Davis Ortiz MD Physical Exam HEENT: Normocephalic; atraumatic CHEST: Even/unlabored CARDIAC: RRR ABDOMEN: Soft, nondistended, RUQ tenderness, bowel sounds active EXTREMITIES: No clubbing, cyanosis, or edema. SKIN: Normal; no rash; no jaundice. IVORY POLISHER: No focal deficits; alert and oriented times three. (Lucita Brewster) Assessment and Plan Plan Assessment: - Elevated LFTs- Elevated during previous post surgical- according to previous progress notes, according to surgery this was likely for lap rolan procedure. On 09/15 LFTs: AST-252 ALT-321 Alk phos-121 T bili- 0.6 Today (09/20) AST:132 ALT-188 Alk phos-214 T bili-0.4 LFTs were normal day prior to procedure Pt denies history of liver issues, ETOH, Tylenol, illicit drugs, OTC herbs and supplements - Abdominal pain with nausea, denies emesis S/P lap cholecystectomy on 09/14- CT abdomen and pelvis W IV contrast (09/19) --> Fluid in the gallbladder fossa. This could be postoperative fluid. This does not appear to have a capsule. A biloma could have a similar appearance. There is intra-and extrahepatic biliary duct dilatation. Free intraperitoneal air, retroperitoneal, and air within the anterior abdominal wall. Presumably, this is post surgical. 4 cm lobulated cystic area in the left retroperitoneum likely related to benign cystic change such as a lymphocele (09/21) --> S/P MRCP yesterday --> Status post recent cholecystectomy with expected postsurgical changes including small amount of fluid and mild inflammatory change in the gallbladder fossa region. Followup imaging could be performed if there is clinical concern for bile leak. The common bile duct measures up to 9 mm which can be seen after cholecystectomy. Lobular fluid collection left retroperitoneum again noted which may represent a lymphocele. LFTs back up some today, still not as elevated as post cholecystectomy GS following. 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 Underwood and this note is written on his behalf (Lucita Brewster) Physician Comments Patient seen and examined Agree with above Continue with current supportive care Monitor labs LFT elevation could be secondary to medications or may be related to the recent surgery or secondary to infection If we continue to see arise we will repeat imaging although I doubt the issue here is related to the biliary system especially with a normal bilirubin My concern would be mostly the liver parenchyma because the picture is mostly hepatitic (Boo Underwood MD) Lucita Brewster Sep 21, 2017 15:32 Boo Underwood MD Sep 21, 2017 23:53
[2017-09-21 17:30] VITALS: BP 96/53; PULSE 54; RESP 16; TEMP 98; O2SAT 97
[2017-09-21 20:21] VITALS: BP 110/63; PULSE 64; RESP 15; TEMP 98.2; O2SAT 97
[2017-09-22] VITALS (8 sets, daily range): BP systolic 102–154; BP diastolic 52–76; PULSE 50–66; RESP 16–18; TEMP 97.6–98.8; O2SAT 96–98
[2017-09-22] MEDS: PIPERACIL-TAZO 3.375 GM PREMIX 50 ML IV SCH ×3 (02:19→14:25)
[2017-09-22] MEDS: HYDROmorphone HCL PF 2 MG/ML VIAL IV PUSH PRN ×2 (06:31→12:20)
[2017-09-22 06:37] LABS: ALBUMIN 2.8 GM/DL (3.4-5.0); ALT (GPT) 142 U/L (10-53); AST (GOT) 73 U/L (15-37); BICARBONATE 25.2 MEQ/L (21.0-32.0); BLOOD UREA NITROGEN 2 MG/DL (7-18); CALCIUM 9.1 MG/DL (8.5-10.1); CHLORIDE 110 MEQ/L (98-107); CREATININE 0.87 MG/DL (0.50-1.00); GLOMERULAR FILTRATION RATE 66 ML/MIN (>89); GLUCOSE,RANDOM 82 MG/DL (74-106); SODIUM (NA) 144 MEQ/L (136-145)
[2017-09-22 06:39] LABS: ALKALINE PHOSPHATASE 195 U/L (45-117); TOTAL BILIRUBIN ADULT 0.4 MG/DL (0.2-1.0); TOTAL PROTEIN 6.1 GM/DL (6.4-8.2)
[2017-09-22] MEDS: DOCUSATE SODIUM 50 MG/SENNA 8.6 MG TAB PO SCH (08:54)
[2017-09-22] MEDS: SODIUM CHLORIDE 0.9% FLUSH 10 ML FLUSH IV FLUSH SCH (08:55)
--- NOTE | 2017-09-22 09:22 | HHI.GIFU ---
Subjective Remarks Pt resting in bed, family at bedside. In NAD. Says she's not eating much and is having abd pain over the area of her incisions. Has nausea but no vomiting. (Bharti [place]) Objective Vitals I&O Vital Signs Date Time Temp Pulse Resp B/P (MAP) Pulse Ox O2 Delivery O2 Flow Rate FiO2 09/22/17 03:33 97.8 59 16 112/58 (76) 96 09/22/17 00:27 97.6 66 18 102/52 (69) 96 09/21/17 20:21 98.2 64 15 110/63 (79) 97 09/21/17 17:30 98.0 54 16 96/53 (67) 97 09/21/17 15:07 18 09/21/17 12:38 98.4 56 18 97/56 (70) 98 I/O 09/21/17 09/21/17 09/21/17 09/22/17 09/22/17 09/22/17 07:00 15:00 23:00 07:00 15:00 23:00 Intake Total 270 ml Balance 270 ml Intake Oral 120 ml IV Total 150 ml # Voids 1 4 # Bowel Movements 0 Laboratory Laboratory Tests Test 09/21/17 16:46 09/22/17 05:32 Hepatitis A IgM Antibody NONREACTIVE Hepatitis B Surface Antigen NONREACTIVE Hepatitis B Core IgM Antibody NONREACTIVE Hepatitis C IgG Antibody NONREACTIVE Blood Urea Nitrogen 2 Creatinine 0.87 Random Glucose 82 Total Protein 6.1 Albumin 2.8 Calcium Level 9.1 Alkaline Phosphatase 195 Aspartate Amino Transf (AST/SGOT) 73 Alanine Aminotransferase (ALT/SGPT) 142 Total Bilirubin 0.4 Sodium Level 144 Potassium Level 3.5 Chloride Level 110 Carbon Dioxide Level 25.2 Anion Gap 9 Estimat Glomerular Filtration Rate 66 Date/Time Source Procedure Growth Status 09/19/17 18:34 Urine Random Urine Urine Culture - Final NO GROWTH IN 48 HOURS. Complete Imaging Last Impressions Cholangiopancreatography MRI 09/20/17 0000 Signed Impressions: Service Date/Time: Wednesday, September 20, 2017 09:54 - CONCLUSION: 1. Status post recent cholecystectomy with expected postsurgical changes including small amount of fluid and mild inflammatory change in the gallbladder fossa region. Followup imaging could be performed if there is clinical concern for bile leak. 2. The common bile duct measures up to 9 mm which can be seen after cholecystectomy. 3. Lobular fluid collection left retroperitoneum again noted which may represent a lymphocele. Clive Burton MD Abdomen/Pelvis CT 09/19/17 1810 Signed Impressions: Service Date/Time: Tuesday, September 19, 2017 19:17 - CONCLUSION: 1. Fluid in the gallbladder fossa. This could be postoperative fluid. This does not appear to have a capsule. A biloma could have a similar appearance. There is intra-and extrahepatic biliary duct dilatation. 2. Free intraperitoneal air, retroperitoneal, and air within the anterior abdominal wall. Presumably, this is post surgical. This should be correlated with the date of the cholecystectomy. 3. 4 cm lobulated cystic area in the left retroperitoneum likely related to benign cystic change such as a lymphocele. Davis Ortiz MD Lower Extremity Ultrasound 09/19/17 0000 Signed Impressions: Service Date/Time: Tuesday, September 19, 2017 19:46 - CONCLUSION: No DVT. Davis Ortiz MD CT Angiography 09/19/17 0000 Signed Impressions: Service Date/Time: Tuesday, September 19, 2017 19:17 - CONCLUSION: No acute disease. No pulmonary embolus is seen. Davis Ortiz MD Physical Exam HEENT: Normocephalic; atraumatic CHEST: Even/unlabored CARDIAC: RRR ABDOMEN: Soft, nondistended, RUQ tenderness, bowel sounds active EXTREMITIES: No clubbing, cyanosis, or edema. SKIN: Normal; no rash; no jaundice. TRANSFER ENGINEER: No focal deficits; alert and oriented times three. (Bharti [place] [facility]) Assessment and Plan Plan Assessment: - Elevated LFTs- Elevated during previous post surgical- according to previous progress notes, according to surgery this was likely for lap rolan procedure. On 09/15 LFTs: AST-252 ALT-321 Alk phos-121 T bili- 0.6 Today (09/20) AST:132 ALT-188 Alk phos-214 T bili-0.4 LFTs were normal day prior to procedure Pt denies history of liver issues, ETOH, Tylenol, illicit drugs, OTC herbs and supplements - Abdominal pain with nausea, denies emesis S/P lap cholecystectomy on 09/14- CT abdomen and pelvis W IV contrast (09/19) --> Fluid in the gallbladder fossa. This could be postoperative fluid. This does not appear to have a capsule. A biloma could have a similar appearance. There is intra-and extrahepatic biliary duct dilatation. Free intraperitoneal air, retroperitoneal, and air within the anterior abdominal wall. Presumably, this is post surgical. 4 cm lobulated cystic area in the left retroperitoneum likely related to benign cystic change such as a lymphocele (09/21) --> S/P MRCP yesterday --> Status post recent cholecystectomy with expected postsurgical changes including small amount of fluid and mild inflammatory change in the gallbladder fossa region. Followup imaging could be performed if there is clinical concern for bile leak. The common bile duct measures up to 9 mm which can be seen after cholecystectomy. Lobular fluid collection left retroperitoneum again noted which may represent a lymphocele. LFTs back up some today, still not as elevated as post cholecystectomy GS following. 09/22/17 LFTs subtly trending down. hep panel neg. iso enzymes pending. c/o RUQ pain, nausea. looks comfortable though. GS following Plan: Monitor LFTs await ALP iso enzymes Nausea medication PRN Reglan Protonix supportive care ok for d/c from GI standpoint f/u with GI in 2 weeks CBC and CMP in 2 weeks Pt has been seen and examined by myself and Dr. Underwood and this note is written on his behalf (Bharti [place]) Physician Comments Patient seen and examined Agree with above Continue with current supportive care Monitor lab Follow-up with GI post discharge (Boo Underwood MD) Bharti [place] Sep 22, 2017 09:22 Boo Underwood MD Sep 22, 2017 23:01
[2017-09-22] MEDS: METOCLOPRAMIDE HCL 10 MG/2 ML VIAL IV PUSH PRN (10:05)
[2017-09-22] MEDS ORDERED: SODIUM CHLOR 0.9% 1000 ML INJ 1,000 ML IV SCH (10:30)
--- NOTE | 2017-09-22 10:35 | HHI.PR ---
Subjective Remarks in no acute distress. abdominal pain is mild. says that she feels dizzy this morning. daughter at the bedside. Objective Vitals Vital Signs Date Time Temp Pulse Resp B/P (MAP) Pulse Ox O2 Delivery O2 Flow Rate FiO2 09/22/17 09:34 97.9 50 16 112/57 (75) 98 09/22/17 09:29 53 134/69 (90) 09/22/17 03:33 97.8 59 16 112/58 (76) 96 09/22/17 00:27 97.6 66 18 102/52 (69) 96 09/21/17 20:21 98.2 64 15 110/63 (79) 97 09/21/17 17:30 98.0 54 16 96/53 (67) 97 09/21/17 15:07 18 09/21/17 12:38 98.4 56 18 97/56 (70) 98 I/O 09/21/17 09/21/17 09/21/17 09/22/17 09/22/17 09/22/17 07:00 15:00 23:00 07:00 15:00 23:00 Intake Total 270 ml Balance 270 ml Intake Oral 120 ml IV Total 150 ml # Voids 1 4 # Bowel Movements 0 Result Diagram: 09/20/17 0903 09/22/17 0532 Imaging Last Impressions Cholangiopancreatography MRI 09/20/17 0000 Signed Impressions: Service Date/Time: Wednesday, September 20, 2017 09:54 - CONCLUSION: 1. Status post recent cholecystectomy with expected postsurgical changes including small amount of fluid and mild inflammatory change in the gallbladder fossa region. Followup imaging could be performed if there is clinical concern for bile leak. 2. The common bile duct measures up to 9 mm which can be seen after cholecystectomy. 3. Lobular fluid collection left retroperitoneum again noted which may represent a lymphocele. Clive Burton MD Abdomen/Pelvis CT 09/19/17 1810 Signed Impressions: Service Date/Time: Tuesday, September 19, 2017 19:17 - CONCLUSION: 1. Fluid in the gallbladder fossa. This could be postoperative fluid. This does not appear to have a capsule. A biloma could have a similar appearance. There is intra-and extrahepatic biliary duct dilatation. 2. Free intraperitoneal air, retroperitoneal, and air within the anterior abdominal wall. Presumably, this is post surgical. This should be correlated with the date of the cholecystectomy. 3. 4 cm lobulated cystic area in the left retroperitoneum likely related to benign cystic change such as a lymphocele. Davis Ortiz MD Lower Extremity Ultrasound 09/19/17 0000 Signed Impressions: Service Date/Time: Tuesday, September 19, 2017 19:46 - CONCLUSION: No DVT. Davis Ortiz MD CT Angiography 09/19/17 0000 Signed Impressions: Service Date/Time: Tuesday, September 19, 2017 19:17 - CONCLUSION: No acute disease. No pulmonary embolus is seen. Davis Ortiz MD Objective Remarks GENERAL: This is a well-nourished, well-developed patient, in no apparent distress. CARDIOVASCULAR: Regular rate and regular rhythm without murmurs, gallops, or rubs. RESPIRATORY: Clear to auscultation. Breath sounds equal bilaterally. No wheezes , rales, or rhonchi. GASTROINTESTINAL: Abdomen soft, RUQ tenderness, nondistended. Normal, active bowel sounds MUSCULOSKELETAL: Extremities without clubbing, cyanosis, or edema. NEURO: Alert & Oriented x4 to person, place, time, situation. Moves all ext x4 Medications and IVs Inpatient Medications Acetaminophen (Tylenol) 650 mg Q6H PRN PO FEVER/PAIN SCALE 1 TO 2 Last administered on 09/20/17at 17:13; Start 09/19/17 at 22:45 Bisacodyl (Dulcolax Supp) 10 mg DAILY PRN RECTAL SEVERE CONSITIPATION; Start at 22:45 Diphenhydramine HCl (Benadryl Inj) 25 mg ONCE ONCE IV PUSH Last administered on 09/20/17at 19:29; Start 09/20/17 at 19:30; Stop 09/20/17 at 19:31; Status DC Diphenhydramine HCl (Benadryl) 25 mg ONCE ONCE PO Last administered on at 19:29; Start 09/20/17 at 19:30; Stop 09/20/17 at 19:31; Status DC Hydromorphone HCl (Dilaudid Pf Inj) 1 mg Q4H PRN IV PUSH PAIN 6-10 Last administered on 09/22/17at 06:31; Start 09/20/17 at 09:30 Lactulose (Lactulose Liq) 30 ml DAILY PRN PO SEVERE CONSITIPATION; Start at 22:45 Magnesium Hydroxide (Milk Of Magnesia Liq) 30 ml Q12H PRN PO Mild constipation ; Start 09/19/17 at 22:45 Metoclopramide HCl (Reglan Inj) 10 mg Q8H PRN IV PUSH Nausea Last administered on 09/22/17 10:05; Start 09/20/17 at 13:15 Morphine Sulfate (Morphine Inj) 2 mg Q3H PRN IV PUSH Pain 6-10 Last administered on 09/20/17 08:12; Start 09/19/17 at 22:45; Stop 09/20/17 at 09:03 ; Status DC Ondansetron HCl (Zofran Inj) 4 mg Q6H PRN IVP NAUSEA OR VOMITING Last administered on 09/21/17 08:20; Start 09/19/17 at 22:45 Oxycodone HCl (Roxicodone) 5 mg Q4H PRN PO PAIN SCALE 3 TO 5 Last administered on 09/22/17 08:55; Start 09/19/17 at 22:45 Pantoprazole Sodium (Protonix Inj) 40 mg Q24H IV PUSH Last administered on 09/21at 14:08; Start 09/20/17 at 14:00 Piperacillin Sod/ Tazobactam Sod 50 ml @ 100 mls/hr Q6H IV Last administered on 09/22/17 08:55; Start 09/20/17 at 14:00 Potassium Chloride (KCl) 20 meq ONCE ONCE PO Last administered on 09/21/17at 11 :34; Start 09/21/17 at 11:00; Stop 09/21/17 at 11:19; Status DC Senna/Docusate Sodium (Sakina-Colace) 1 tab BID PO Last administered on 08:54; Start 09/20/17 at 09:00 Sennosides (Senokot) 17.2 mg Q12H PRN PO Moderate constipation; Start 09/19/17 at 22:45 Sodium Chloride (NS Flush) 2 ml BID IV FLUSH Last administered on 09/22/17at 08: 55; Start 09/20/17 at 09:00 A/P Problem List: (1) Intractable pain ICD Code: R52 - Pain, unspecified (2) Elevated LFTs ICD Code: R79.89 - Other specified abnormal findings of blood chemistry (3) HTN (hypertension) ICD Code: I10 - Essential (primary) hypertension Assessment and Plan A/P 1. Intractable Abd Pain: recent admit 09/14/17 for RUQ pain, +cholelithiasis/ cholecystitis s/p Lap Shavon by Dr. Walter, now w/ RUQ pain. CT Abd/Pelvis w/ fluid in gallbladder fossa, likely postop fluid or biloma, + intra and extra hepatic biliary ductal dilatation. MRCP with small amount of fluid and inflammatory changes in GB fossa- started on IV antibiotics- surgery and GI following. 2. Elevated LFTs: will monitor the trend- GI and surgery f/u as noted above. 3. elevated BP at the time of presentation- now BP is on low side and the patient feels dizzy; start on IV fluid and check for orthostatic BP. consult PT. 4. DVT Prophylaxis: SCD/Teds. Discharge Planning when cleared by GI - seen by PT and BP improves. Gigi Chowdhury MD Sep 22, 2017 10:35
--- NOTE | 2017-09-22 11:43 | HHI.PR ---
cc: Jose AngelJustin Subjective Subjective Notes Resting in bed Pain better but concerned about dizziness and low blood pressure Not much appetite Daughter Kalie at bedside also concerned about blood pressure Objective Vitals/I&O Vital Signs Date Time Temp Pulse Resp B/P (MAP) Pulse Ox O2 Delivery O2 Flow Rate FiO2 09/22/17 10:01 134/64 (87) 09/22/17 09:34 97.9 50 16 98 09/20/17 13:53 Room Air Labs Laboratory Tests Test 09/21/17 16:46 09/22/17 05:32 Hepatitis A IgM Antibody NONREACTIVE Hepatitis B Surface Antigen NONREACTIVE Hepatitis B Core IgM Antibody NONREACTIVE Hepatitis C IgG Antibody NONREACTIVE Blood Urea Nitrogen 2 Creatinine 0.87 Random Glucose 82 Total Protein 6.1 Albumin 2.8 Calcium Level 9.1 Alkaline Phosphatase 195 Aspartate Amino Transf (AST/SGOT) 73 Alanine Aminotransferase (ALT/SGPT) 142 Total Bilirubin 0.4 Sodium Level 144 Potassium Level 3.5 Chloride Level 110 Carbon Dioxide Level 25.2 Anion Gap 9 Estimat Glomerular Filtration Rate 66 Date/Time Source Procedure Growth Status 09/19/17 18:34 Urine Random Urine Urine Culture - Final NO GROWTH IN 48 HOURS. Complete Cardiovascular: Regular Lungs: Clear Abdomen: Other (lap sites c/d/i without any signs of infection; minimally tender to palpation ), Post-op tenderness Extremities: Other (BLE edema ) A/P Assessment and Plan 62 year old female s/p lap rolan discharged home last Friday; back with low appetite; pain; dizziness -Diet as tolerated -Liver enzymes continue to trend down -OOB as tolerated -Family and patient concerned about dizziness ----Discussed with BRITTNEY Seymour -No acute General Surgery issues at this time Attending Statement patient seen at bedside returned with dizziness and low bp, surgical site appears without infection and completely intact pt does mention a salt disorder and typically eats a lot of salt on a daily basis. await medical work up no surgical indication Attestation The exam, history, and the medical decision-making described in the above note were completed with the assistance of the mid-level provider. I reviewed and agree with the findings presented. I attest that I had a [id number] encounter with the patient on the same day, and personally performed and documented my assessment and findings in the medical record. Florence Muñoz/First Divina MADRIGAL Sep 22, 2017 11:43 Justin Walter MD Sep 26, 2017 10:05
[2017-09-22] MEDS: PANTOPRAZOLE SODIUM 40 MG VIAL IV PUSH SCH (14:25)
--- NOTE | 2017-09-22 16:40 | HHI.DCPOC ---
Discharge Care Plan Diagnosis: (1) Elevated LFTs (2) Bile duct abnormality Goals to Promote Your Health * To prevent worsening of your condition and complications * To maintain your health at the optimal level Directions to Meet Your Goals Take your medications as prescribed Follow your dietary instruction Follow activity as directed Keep your appointments as scheduled Take your immunizations and boosters as scheduled If your symptoms worsen call your PCP, if no PCP go to Urgent Care Center or Emergency Room Smoking is Dangerous to Your Health. Avoid second hand smoke Call the 24-hour hour crisis hotline for domestic abuse at Laura Macias PA-C Sep 22, 2017 16:40
[2017-09-25 03:50] LABS: ALK PHOS BONE (ISOENZYMES) 40 % (28-66); ALK PHOS INTESTINE (ISOENZYME) 0 % (1-24); ALK PHOS LIVER (ISOENZYME) 60 % (25-69); ALK PHOS PLACENTAL ISOENZYME 0 % (0)
== END 2017-09-22 17:02 | disposition home or self-care (01) ==
LOC: NEPE 16:43 → NEDA 22:36 → NEDH 09-20 06:45 → NEPGCP 09-20 17:01
PROVIDERS: ADMIT Hospitalist; ATTEND Hospitalist
DX: R52 Pain, unspecified (principal); R79.89 Other specified abnormal findings of blood chemistry; I10 Essential (primary) hypertension; R06.02 Shortness of breath; R82.71 Bacteriuria; R00.2 Palpitations; R74.8 Abnormal levels of other serum enzymes; E11.9 Type 2 diabetes mellitus without complications; R00.1 Bradycardia, unspecified; R94.31 Abnormal electrocardiogram [ECG] [EKG]; R10.11 Right upper quadrant pain; R19.7 Diarrhea, unspecified; R51 Headache; F17.210 Nicotine dependence, cigarettes, uncomplicated
CPT/HCPCS: 71275; 74177; 74181; 76377; 80053; 80074; 81001; 83605; 83690; 84080; 85025; 85610; 85730; 87086; 93005; 93970; 96361; 96365; 96366; 96375; 96376; 97162; 99285; C9113; G0378; G8987; G8988; J1170; J1200; J2270; J2405; J2543; J2765; J7030; Q9967